=== PATIENT | female | born 1985 | race Caucasian/White ===

== ENCOUNTER 2020-01-26 07:00 | Emergency (ER) | payer OTHER, SELFPAY ==
[2020-01-26 07:08] VITALS: BP 130/82; BP 130/84; PULSE 88; PULSE 96; RESP 18; TEMP 36.6; O2SAT 100; O2SAT 98; BMI 31.3
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
[2020-01-26] MEDS: Acetaminophen 325 MG TABLET 650 MG PO (07:25)
[2020-01-26] MEDS: diazePAM 5 MG TABLET PO (07:26)
[2020-01-26 09:09] VITALS: BP 115/66; PULSE 58; RESP 16; O2SAT 98
--- NOTE | 2020-01-26 09:22 | PC.NURSE ---
PT GIVEN TOAST AND JUICE
== END 2020-01-26 09:30 | disposition home or self-care (01) ==
PROVIDERS: Emergency Provider Emergency Medicine; PCP Internal Medicine
DX: S13.4XXA Sprain of ligaments of cervical spine, initial encounter (principal); S46.912A Strain of unspecified muscle, fascia and tendon at shoulder and upper arm level, left arm, initial encounter; M54.2 Cervicalgia; M25.512 Pain in left shoulder; V43.52XA Car driver injured in collision with other type car in traffic accident, initial encounter; Y93.9 Activity, unspecified; Y92.410 Unspecified street and highway as the place of occurrence of the external cause; Y99.9 Unspecified external cause status; Z79.899 Other long term (current) drug therapy; F17.200 Nicotine dependence, unspecified, uncomplicated; Z71.6 Tobacco abuse counseling
CPT/HCPCS: 71046; 72125; 73030; 99284

== ENCOUNTER 2020-03-21 14:03 | Outpatient (REF) | payer OTHER, SELFPAY | END 2020-03-21 14:04 | disposition home or self-care (01) | LOC: HO.LAB 14:03 | PROVIDERS: PCP Internal Medicine; Visit Provider Internal Medicine | DX: Z20.822 Contact with and (suspected) exposure to COVID-19 (principal) | CPT/HCPCS: 36415; C9803; U0003 ==

== ENCOUNTER 2020-06-03 06:41 | Emergency (ER) | payer OTHER, SELFPAY ==
[2020-06-03 06:48] VITALS: BP 110/59; PULSE 77; RESP 18; TEMP 36.4; O2SAT 98; BMI 31.3
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
--- NOTE | 2020-06-03 07:13 | ECG_ITS ---
Test Reason : DIZZY Blood Pressure : / mmHG Vent. Rate : 065 BPM Atrial Rate : 065 BPM P-R Int : 164 ms QRS Dur : 092 ms QT Int : 448 ms P-R-T Axes : 033 005 017 degrees QTc Int : 465 ms Normal sinus rhythm Minimal voltage criteria for LVH, may be normal variant Borderline ECG When compared with ECG of 13-DEC-2017 10:52, No significant change was found Referred By: David Oliva Electronically Signed By:FATMATA GARCIA
--- NOTE | 2020-06-03 07:56 | PC.NURSE ---
Pt difficult IV stick, will have another RN attempt
[2020-06-03] MEDS: ondansetron HCL 4 MG/2 ML VIAL IVPUSH (08:12)
[2020-06-03] MEDS: 0.9 % Sodium Chloride 1,000 ML 999 ML IVCONT (08:12)
[2020-06-03 08:31] LABS: MANUAL DIFF FLAG NO
[2020-06-03 08:33] LABS: Basophils Percent Auto 0.6 % (0-2); Eosinophils Absolute Auto 0.6 X10*3/uL (0.0-0.4); Eosinophils Percent Auto 8.6 % (0-4); Hematocrit 39.8 % (37-47); Hemoglobin 13.1 g/dl (12.0-16.0); Imm Gran Abs Auto 0.01 X10*3/uL (0.00-0.03); Imm Gran Pct Auto 0.1 % (0.0-0.4); Lymphocytes Absolute Auto 1.5 X10*3/uL (1.2-4.9); Lymphocytes Percent Auto 21.8 % (20-40); Mean Corpuscular HGB Conc 32.9 g/dl (31.0-35.0); Mean Corpuscular Hemoglobin 29.4 pg (27.0-33.0); Mean Corpuscular Volume 89.2 fL (80-98); Mean Platelet Volume 8.9 fL (9.4-12.3); Monocytes Absolute Auto 0.5 X10*3/uL (0.1-1.2); Monocytes Percent Auto 7.1 % (2-11); Neutrophils Absolute Auto 4.4 X10*3/uL (2.0-8.3); Neutrophils Percent Auto 61.8 % (45-73); Platelet Count 288 X10*3/uL (160-400); Red Blood Count 4.46 X10*6/uL (4.20-5.50); Red Cell Distribution Width 13.2 % (11.0-16.0); White Blood Count 7.1 X10*3/uL (4.8-10.8)
[2020-06-03 08:59] LABS: HCG Quantitative < 2 mIU/mL
[2020-06-03 09:04] LABS: Alanine Aminotransferase 24 U/L (0-31); Albumin Level 3.9 g/dL (3.5-5.0); Alkaline Phosphatase 74 U/L (39-117); Anion Gap 14 (12-20); Aspartate Amino Transferase 22 U/L (5-31); Bilirubin Total 0.2 mg/dL (0.0-1.0); Blood Urea Nitrogen 10 mg/dL (9-16); Calcium 8.2 mg/dL (8.4-10.2); Carbon Dioxide 25 mmol/L (22-29); Chloride 103 mmol/L (96-108); Creatinine Clr Calc Pharmacy 130.9; Estimated Glomerular Filt Rate > 60; Glucose Random 95 mg/dL (60-115); Lipase 30 U/L (8-78); Potassium 4.5 mmol/L (3.3-5.1); Sodium 137 mmol/L (135-145); Total Protein 6.8 g/dL (6.5-8.0)
[2020-06-03 09:19] VITALS: BP 107/66; PULSE 60; RESP 16; O2SAT 97
== END 2020-06-03 09:45 | disposition home or self-care (01) ==
PROVIDERS: Emergency Provider Emergency Medicine; PCP Internal Medicine
DX: R11.2 Nausea with vomiting, unspecified (principal); Z21 Asymptomatic human immunodeficiency virus [HIV] infection status; F11.10 Opioid abuse, uncomplicated; F17.200 Nicotine dependence, unspecified, uncomplicated
CPT/HCPCS: 36415; 80053; 83690; 84702; 85025; 93005; 96361; 96374; 99284; J2405

== ENCOUNTER 2021-10-12 13:32 | Emergency (ER) | payer OTHER, SELFPAY ==
[2021-10-12 14:00] VITALS: BP 121/73; PULSE 73; RESP 18; TEMP 36.7; O2SAT 99; BMI 21.9
[2021-10-12 14:15] LABS: MANUAL DIFF FLAG NO
[2021-10-12 14:17] LABS: Basophils Percent Auto 0.2 % (0-2); Eosinophils Percent Auto 0.8 % (0-4); Hematocrit 46.1 % (37.0-47.0); Hemoglobin 15.9 g/dl (12.0-16.0); Imm Gran Abs Auto 0.01 X10*3/uL (0.00-0.03); Imm Gran Pct Auto 0.2 % (0.0-0.4); Lymphocytes Absolute Auto 0.7 X10*3/uL (1.2-4.9); Lymphocytes Percent Auto 13.8 % (20-40); Mean Corpuscular HGB Conc 34.5 g/dl (31.0-35.0); Mean Corpuscular Volume 84.1 fL (80.0-98.0); Mean Platelet Volume 9.8 fL (9.4-12.3); Monocytes Absolute Auto 0.3 X10*3/uL (0.1-1.2); Monocytes Percent Auto 6.1 % (2-11); Neutrophils Percent Auto 78.9 % (45-73); Platelet Count 256 X10*3/uL (160-400); Red Blood Count 5.48 X10*6/uL (4.20-5.50); Red Cell Distribution Width 12.8 % (11.0-16.0); White Blood Count 5.1 X10*3/uL (4.8-10.8)
[2021-10-12 14:44] LABS: COVID-19 Test Negative (Negative)
[2021-10-12 14:46] LABS: Alanine Aminotransferase 42 U/L (0-31); Albumin Level 4.8 g/dL (3.5-5.0); Alkaline Phosphatase 63 U/L (39-117); Anion Gap 18 (12-20); Aspartate Amino Transferase 29 U/L (5-31); Bilirubin Direct 0.4 mg/dL (0.0-0.5); Bilirubin Total 0.8 mg/dL (0.0-1.0); Blood Urea Nitrogen 7 mg/dL (9-16); Calcium 9.4 mg/dL (8.4-10.2); Carbon Dioxide 22 mmol/L (22-29); Chloride 100 mmol/L (96-108); Creatinine Clr Calc Pharmacy 103.1; Estimated Glomerular Filt Rate > 60; Glucose Random 80 mg/dL (60-115); Lipase 18 U/L (8-78); Potassium 3.8 mmol/L (3.3-5.1); Sodium 136 mmol/L (135-145); Total Protein 8.3 g/dL (6.5-8.0)
[2021-10-12] MEDS: 0.9 % Sodium Chloride 1,000 ML 999 ML IV (15:47)
[2021-10-12] MEDS: ondansetron HCL 4 MG/2 ML VIAL IVPUSH (15:48)
[2021-10-12 15:55] VITALS: BP 123/63; PULSE 69; RESP 20; TEMP 37.2; O2SAT 98
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
[2021-10-12 17:40] VITALS: BP 98/48; PULSE 74; RESP 18; TEMP 36.8; O2SAT 98
== END 2021-10-12 17:45 | disposition home or self-care (01) ==
PROVIDERS: Emergency Provider Emergency Medicine; PCP Internal Medicine
DX: R11.2 Nausea with vomiting, unspecified (principal); F17.210 Nicotine dependence, cigarettes, uncomplicated; Z20.822 Contact with and (suspected) exposure to COVID-19; Z71.6 Tobacco abuse counseling; Z79.899 Other long term (current) drug therapy
CPT/HCPCS: 36415; 80048; 80076; 83690; 84702; 85025; 87635; 96374; 99284; J2405

== ENCOUNTER 2023-05-26 09:07 | Emergency (ER) | payer MEDICAID, SELFPAY ==
--- NOTE | ~2023-05-26 | CT_ITS ---
EXAMINATION: CT HEAD WITHOUT CONTRAST CLINICAL INFORMATION: Fall head strike COMPARISON: None TECHNIQUE: Contiguous axial imaging was performed from the skull base to vertex without intravenous administration of contrast. This CT examination was performed using dose optimization techniques as appropriate, variously including the following: *Automated exposure control *Adjustment of mA and/or kV according to patient size (this includes techniques or standardized protocols for targeted exams where dose is matched to indication/reason for exam; i.e. extremities or head) *Use of iterative reconstruction technique DLP: 1052 mGy-cm FINDINGS: There is no evidence of acute intracranial hemorrhage or territorial infarction. No abnormal mass effect or midline shift is seen. [place] to white matter differentiation is well preserved. No extra-axial fluid collections are identified. The ventricles are normal in size. There is no abnormal attenuation within the brain parenchyma. The osseous structures and soft tissues are normal. Mucoperiosteal thickening of the right maxillary sinus. The mastoid air cells and visualized portions of the paranasal sinuses are well aerated. CT/CT cervical spine wo IV con IMPRESSION: No acute intracranial pathology. EXAMINATION: Noncontrast CT scan of the cervical spine. INDICATION: Neck pain trauma COMPARISON: CT cervical spine from 01/26/2020 TECHNIQUE: Helical, multidetector axial images were obtained from the occiput to the upper thorax. Coronal and sagittal reformats of the cervical spine were provided for interpretation. DLP: 1052 mGy-cm FINDINGS: No acute fractures or dislocations of the cervical spine are seen. Anatomic alignment and positioning of the vertebral bodies and posterior elements is noted. The atlantoaxial joint and craniovertebral articulations are normal without evidence of subluxation. There is no prevertebral soft tissue swelling. The thyroid gland and visualized portions of the lung apices and mediastinum are unremarkable. IMPRESSION: No acute visible fracture or dislocation.
--- NOTE | ~2023-05-26 | XR_ITS ---
EXAMINATION: XR ANKLE, RIGHT CLINICAL INFORMATION: Ankle pain and swelling COMPARISON: None available. TECHNIQUE: AP, lateral, and mortise views of the right ankle. FINDINGS: There is bilateral soft tissue swelling, lateral greater than medial. An ankle joint effusion is present. No fracture. Alignment is anatomic. No erosions. Joint spaces are maintained. XR/XR ankle RT min 3V IMPRESSION: Soft tissue swelling and ankle joint effusion. No acute fracture or malalignment.
[2023-05-26 09:14] VITALS: BP 106/49; BP 136/76; PULSE 108; PULSE 78; RESP 18; TEMP 36.9; O2SAT 96; O2SAT 98; BMI 26.0
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
[2023-05-26] MEDS: Ketorolac Tromethamine 30 MG/ML VIAL IM (09:52)
[2023-05-26 11:36] VITALS: PULSE 79; RESP 16; TEMP 36.9; O2SAT 96
[2023-05-26 11:52] VITALS: BP 114/55; PULSE 79; RESP 18; TEMP 36.9; O2SAT 96
--- NOTE | 2023-05-26 11:54 | PC.NURSE ---
offered shoes as pt did not have any and being d/c'd- declined to wait for shoes to be given by hospital- given nonskid socks to wear over her own socks as pt not wait for shoes
== END 2023-05-26 11:52 | disposition home or self-care (01) ==
PROVIDERS: Emergency Provider Emergency Medicine
DX: S06.0X0A Concussion without loss of consciousness, initial encounter (principal); M25.571 Pain in right ankle and joints of right foot; Z21 Asymptomatic human immunodeficiency virus [HIV] infection status; W18.30XA Fall on same level, unspecified, initial encounter; Y93.E9 Activity, other interior property and clothing maintenance; Y92.9 Unspecified place or not applicable; Y99.9 Unspecified external cause status
CPT/HCPCS: 70450; 72125; 73610; 96372; 99284; J1885

== ENCOUNTER 2023-10-24 18:57 | Emergency (ER) | payer MEDICAID, SELFPAY ==
[2023-10-24 19:20] VITALS: BP 101/50; BP 112/75; PULSE 68; PULSE 75; RESP 12; TEMP 36.6; O2SAT 100; BMI 23.5
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
[2023-10-24 19:27] VITALS: BP 97/59; PULSE 67; RESP 13; O2SAT 100
[2023-10-24 21:44] VITALS: BP 97/53; PULSE 61; RESP 12; TEMP 36.4; O2SAT 96
[2023-10-25 00:27] VITALS: BP 90/52; PULSE 58; RESP 16; TEMP 36.4; O2SAT 97
--- NOTE | 2023-10-25 00:30 | PC.NURSE ---
Pt arousable to verbal stimuli. Ready to be discharged with a sober ride. Pt does not have a sober ride available. Monitoring is ongoing.
--- NOTE | 2023-10-25 01:13 | PC.NURSE ---
Pts significant other, Mikael, called and states will be able to provide a sober ride for pt.
[2023-10-25 02:00] VITALS: BP 0/0; PULSE 0; RESP 0; TEMP -17.7; TEMP 0; O2SAT 0
== END 2023-10-25 02:00 | disposition home or self-care (01) ==
PROVIDERS: Emergency Provider Emergency Medicine
DX: T40.1X1A Poisoning by heroin, accidental (unintentional), initial encounter (principal); R40.0 Somnolence; Y92.59 Other trade areas as the place of occurrence of the external cause; F11.20 Opioid dependence, uncomplicated; B20 Human immunodeficiency virus [HIV] disease; F17.210 Nicotine dependence, cigarettes, uncomplicated
CPT/HCPCS: 99285

== ENCOUNTER 2025-01-31 02:12 | Inpatient (IN) | payer MEDICAID, SELFPAY ==
--- NOTE | ~2025-01-31 | CT_ITS ---
CLINICAL HISTORY: vomiting CT abdomen and pelvis with contrast Comparison: CT - CT ABDOMEN PELVIS W IV CON - 01/31/25 04:23 EST Findings: Bilateral right middle and left lower lobe nodular/tree-in-bud airspace opacities are present. No pleural effusion. There is mild central biliary dilation with prominence of the CBD measuring up to 9 mm without radiopaque filling defects or bile duct obstructions present. Mild pericholecystic fluid is present within a nondilated gallbladder. Spleen, pancreas, bilateral adrenal glands, and bilateral kidneys are within normal limits. No nephrolithiasis. No bowel obstruction, pneumoperitoneum, or pneumatosis. Appendix is normal. Bladder is distended without thickened bernal. Uterus is unremarkable. No suspicious osseous findings. No acute soft tissue findings. IMPRESSION: Mild intrahepatic ductal dilation with prominence of the CBD measuring up to 9 mm without obstructions or radiopaque stones identified. Pericholecystic fluid without findings of cholecystitis. This document has been electronically signed by: Nick Rodriguez MD on 01/31/2025 06:10:26
--- NOTE | ~2025-01-31 | XR_ITS ---
CLINICAL HISTORY: chest pain 1 view chest x-ray Comparison: None provided Findings: Patchy bilateral airspace opacities are present which could reflect developing pneumonia. No pleural effusion. Normal size heart. No acute fracture. IMPRESSION: Patchy bilateral airspace opacities are concerning for developing multifocal pneumonia. This document has been electronically signed by: Nick Rodriguez MD on 01/31/2025 05:53:21
[2025-01-31 02:17] VITALS: BP 113/73; PULSE 103; O2SAT 98
[2025-01-31 02:23] VITALS: BP 127/84; PULSE 93; RESP 18; TEMP 37; O2SAT 98; BMI 17.1
[2025-01-31 02:27] VITALS: BP 127/84; PULSE 93; RESP 18; TEMP 37; O2SAT 98
--- NOTE | 2025-01-31 02:28 | ECG_ITS ---
Test Reason : pain Blood Pressure : */* mmHG Vent. Rate : 78 BPM Atrial Rate : 78 BPM P-R Int : 152 ms QRS Dur : 100 ms QT Int : 412 ms P-R-T Axes : 65 58 75 degrees QTcB Int : 469 ms Normal sinus rhythm Nonspecific ST and T wave abnormality Prolonged QT Abnormal ECG When compared with ECG of 03-Jun-2020 07:31, ST no longer elevated in Lateral leads T wave inversion now evident in Anterior leads Referred By: Rudi Gutierres Electronically Signed By: Miguel Regan
[2025-01-31] MEDS: Lactated Ringers 1,000 ML 999 ML IV (03:04)
[2025-01-31 03:15] LABS: MANUAL DIFF FLAG NO
[2025-01-31 03:16] LABS: Hematocrit 43.7 % (37.0-47.0); Hemoglobin 15.2 g/dl (12.0-16.0); Imm Gran Abs Auto 0.05 X10*3/uL (0.00-0.03); Imm Gran Pct Auto 0.5 % (0.0-0.4); Lymphocytes Absolute Auto 0.5 X10*3/uL (1.2-4.9); Mean Corpuscular HGB Conc 34.8 g/dl (31.0-35.0); Mean Corpuscular Hemoglobin 28.8 pg (27.0-33.0); Mean Corpuscular Volume 82.9 fL (80.0-98.0); NRBC Abs Auto 0.000 X10*3/uL (0.0-0.012); NRBC Pct Auto 0.0 /100WBC (0.0-0.2); Platelet Count 485 X10*3/uL (160-400); Red Blood Count 5.27 X10*6/uL (4.20-5.50); White Blood Count 9.1 X10*3/uL (4.8-10.8)
--- OUTSIDE RECORDS SUMMARY | 2025-01-31 03:24 | XMS_ITS | Clinical Summary ---
Author Organization [facility] Address [address] [place] [address] Care Team Providers Care Founder And Ceo Name Role Phone Unavailable Primary Care Provider Unavailabl e Social History Tobacco Use Types Packs/Day Years Used Date Smoking Tobacco: Never Assessed Comments Unknown Sex and Gender Information Value Date Recorded Sex Assigned at Not on file Legal Sex Female 4:03 PM EST Gender Identity Not on file Sexual Orientation Not on file Plan of Treatment Health Maintenance Due Date Last Done Comments DTaP,Tdap,and Td Vaccines (1 - Tdap) 2004 Hepatitis B Vaccines (1 of 3 - 19+ 3-dose series) 2004 Cervical Cancer Screening: P ap Smear 2006 HPV Vaccines (1 - 3-dose SCD M series) 2012 Depression Screening 03/10/2024 COVID-19 Vaccine ( - 2024-2 6 season) 2024 Influenza Vaccine (#1) 2024 RSV Immunization Adult Patie nts (1 - 1-dose 75+ series) 2060 HIB Vaccines Aged Out No longer eligi ble based on patient's age to complete this topic Hepatitis A Vaccines Aged Out No long er eligible based on patient's age to complete this topic IPV Vaccines Aged Out No longer eligi ble based on patient's age to complete this topic MMR Vaccines Aged Out No longer eligi ble based on patient's age to complete this topic Meningococcal ACWY Vaccine Aged Out N o longer eligible based on patient's age to complete this topic Meningococcal B Vaccine Aged Out No l onger eligible based on patient's age to complete this topic Pneumococcal Vaccine: Pediat rics (0 to 5 Years) and At-Risk Patients (6 to 49 Years) Aged Out No longer eligible b ased on patient's age to complete this topic RSV Immunization Patients Un alka 20 months Aged Out No longer eligible b ased on patient's age to complete this topic Varicella Vaccines Aged Out No longer eligible based on patient's age to complete this topic
[2025-01-31 03:36] LABS: Troponin-I High Sensitivity < 2.7 ng/L (<3.5-17.0)
[2025-01-31 03:39] LABS: Alanine Aminotransferase 31 U/L (0-31); Albumin Level 4.7 g/dL (3.5-5.0); Alkaline Phosphatase 69 U/L (39-117); Anion Gap 17 (12-20); Aspartate Amino Transferase 30 U/L (5-31); Blood Urea Nitrogen 11 mg/dL (9-16); Calcium 9.7 mg/dL (8.4-10.2); Carbon Dioxide 29 mmol/L (22-29); Chloride 96 mmol/L (96-108); Creatinine Clr Calc Pharmacy 98.5; Estimated Glomerular Filt Rate > 60; Lipase 12 U/L (8-78); Magnesium 2.3 mg/dL (1.6-2.6); Potassium 2.6 mmol/L (3.3-5.1); Sodium 139 mmol/L (135-145); Total Protein 8.0 g/dL (6.5-8.0)
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
[2025-01-31] MEDS: KCl 20 mEq in 0.9 % Sodium ChL 20 MEQ/1,000 ML IV.SOLN 125 MEQ IVCONT (04:05)
[2025-01-31] MEDS: diazePAM 10 MG/2 ML CARTRIDGE 5 MG IVPUSH (04:05)
--- NOTE | 2025-01-31 04:20 | HO.NURTONUR ---
At 0300, RN had no tech on the floor in the ED; labs, EKG, etc will be delayed as pt is actively throwing up and RN has other pts to take care of as well in the moment. Pt was a hard stick but RN was able to obtain a #22 in . medicating per mar. pt is HIV +.
[2025-01-31] MEDS: iohexoL 350 MG/ML 100 ML INFUS..BTL 75 ML IV (04:39)
[2025-01-31 04:49] LABS: HIV Num 1 151.82 S/CO (0.00-0.99)
[2025-01-31 04:52] LABS: HIV Num 2 156.83 S/CO; HIV Num 3 156.28 S/CO
[2025-01-31 05:02] LABS: Resp Syncy Virus RNA Qual PCR NEGATIVE (Negative); SARS COV2 PCR INHOUSE NEGATIVE (Negative)
[2025-01-31] MEDS: Nystatin Oral Susp 500,000 UNIT/5 ML ORAL.SUSP 500000 UNIT PO (05:12)
[2025-01-31 05:33] VITALS: BP 121/78; PULSE 77; RESP 16; O2SAT 96
--- NOTE | 2025-01-31 05:36 | PC.NURSE ---
late lactic blood draw as pt had clotted during previous attempt. RN also lost tech at 0300. Lactic louisa by RN-sent to lab.
[2025-01-31] MEDS: Potassium Chloride ER 20 MEQ TAB.ER.PRT 60 MEQ PO (05:48)
--- NOTE | 2025-01-31 06:43 | HO.NURTONUR ---
pt only has one line- she is a hard stick. MD has ordered IV bactrim but it is not compatible with the K+ that is currently infusing. Pt will need another line. RN to let incoming RN know.
--- NOTE | 2025-01-31 07:46 | PM.DS ---
DS: Providers Provider Date of Service: 01/31/25 Date of admission: 01/31/25 06:17 Date of discharge: 01/31/25 Primary care physician: Paula Booker MD DS: Summary Hospital Course Hospital Course: Note from ED provider 39-year-old female with a past medical history significant for HIV presents for evaluation of nausea vomiting and chest pain. Patient reports that she has been vomiting for 1 month without being able to keep anything down. She reports that she has been offer HIV medications for about 1 year. She states that they are making her sick and she would not want to keep taking them She had previously been on them rail before a few years. She denies any previous abdominal surgeries pain She states that she is not actively using alcohol or drugs. Denies any fevers, chills. She endorses weakness Patient admitted for approximately 1 hour, workup has been started but not completed. We will send home with antibiotic for 7 days for possible pneumonia in light of history of HIV The patient has decided to leave against medical advice. She has normal mental status and adequate capacity to make medical decisions. The patient refuses hospital admission and wants to be discharged. The risks have been explained to the patient including worsening illness, chronic pain, permanent disability and even . The benefits of admission have also been explained including the availability of nurses, medical providers, close monitoring, IV medications, diagnostic imaging, treatments, etc.. The patient was able to understand and state the risks and benefits of hospital admission. The patient was given opportunities to ask questions prior to leaving. Time Attestation Discharge Coordination Time (in mins): 30 Quality: Safe Use of Opioids Does Pt have an Active Cancer Diagnosis on the Problem List?: No Quality: Stroke Does the patient have a stroke diagnosis?: No Physical Exam Exam: Exam: Declined Vital Signs: Vital Signs: Last Vital Signs Temp 98.6 F 01/31/25 02:27 Pulse 77 01/31/25 05:33 Resp 16 01/31/25 05:33 BP 121/78 01/31/25 05:33 Pulse Ox 96 01/31/25 05:33 O2 Del Method Room Air 01/31/25 05:33 BMI result Body Mass Index 17.1 DS: Data Data Completed and Pending Labs on day of discharge: Laboratory Results - last 24 hr 01/31/25 01/31/25 01/31/25 03:09 03:10 05:32 WBC 9.1 RBC 5.27 Hgb 15.2 Hct 43.7 MCV 82.9 MCH 28.8 MCHC 34.8 RDW 11.8 Plt Count 485 H D MPV 8.9 L Immature Gran % (Auto) 0.5 H Neut % (Auto) 86.1 H Lymph % (Auto) 5.4 L [place] % (Auto) 7.6 Eos % (Auto) 0.2 Baso % (Auto) 0.2 Lymph # (Auto) 0.5 L [place] # (Auto) 0.7 Eos # (Auto) 0.0 Baso # (Auto) 0.0 Abs Immat Gran (auto) 0.05 H Absolute Neuts (auto) 7.9 Absolute Nucleated RBC 0.000 Nucleated RBC % (auto) 0.0 Sodium 139 Potassium 2.6 L* Chloride 96 Carbon Dioxide 29 Anion Gap 17 BUN 11 Creatinine 0.60 Estim Creat Clear Calc 98.5 Estimated GFR > 60 Random Glucose 131 H Lactic Acid 0.7 Calcium 9.7 Magnesium 2.3 Total Bilirubin 0.5 AST 30 ALT 31 Alkaline Phosphatase 69 Troponin I High Sens < 2.7 Total Protein 8.0 Albumin 4.7 Lipase 12 Beta HCG, Quant < 2 HIV 1&2 Ab/P24 Ag 4thGn Reactive H Influenza Type A (PCR) NEGATIVE Influenza Type B (PCR) NEGATIVE RSV RNA Qual (PCR) NEGATIVE SARS-CoV-2 RNA (RT-PCR) NEGATIVE Discharge Plan Discharge Anticipated Discharge Date/Time: 01/31/25 07:44 Patient Disposition: Left Against Medical Advice Discharge Diagnosis: Nausea and vomiting Pneumonia Untreated HIV Referrals: Paula Kim MD [Primary Care Provider, Internal Medicine] Discharge Medications: New sulfamethoxazole-trimethoprim [Bactrim DS] 800-160 mg tablet 1 tab PO Q12H Qty: 14 0RF Continued hydroxyzine HCl 25 mg tablet 25 mg PO Q8H PRN ondansetron HCl [Zofran] 4 mg tablet 4 mg PO Q8H PRN (Reason: nausea and vomiting) Qty: 14 0RF ondansetron 4 mg tablet,disintegrating 4 mg PO Q6H PRN (Reason: nausea and vomiting) Qty: 20 0RF prenat.vits,marianna,vti-vtmb-hgzqy Tablet 1 tab PO DAILY Qty: 60 0RF ketorolac 10 mg tablet 10 mg PO TID PRN (Reason: pain) 5 Days Qty: 15 0RF prednisone 20 mg tablet 20 mg PO DAILY 5 Days Qty: 5 0RF acetaminophen [Tylenol] 325 mg capsule 325 mg PO Q4H PRN (Reason: pain) Qty: 30 0RF awwfdnfuv-tnhjxxnq-pwktevp ala 50-200-25 mg tablet 1 tab PO DAILY Qty: 14 0RF sertraline 100 mg tablet 300 mg PO Q OTHER DAY PRN fluticasone propionate [Flonase Allergy Relief] 50 mcg/actuation spray,suspension 1 spray intranasal DAILY 30 Days Qty: 16 3RF Rx Instructions: administer into each nostril hydrocortisone [Anti-Itch (HC)] 1 % cream 1 appl topical TID PRN (Reason: skin irritation) 30 Days Qty: 28.35 3RF Discharge Orders: Discharge Order (Routine); Ordered 01/31/25 Ordered By: Kyleigh Dewitt Diet: Advance to usual diet Activity on Discharge: As tolerated Print Language: [place] Care Plan Goals: The patient has decided to leave against medical advice. She has normal mental status and adequate capacity to make medical decisions. The patient refuses hospital admission and wants to be discharged. The risks have been explained to the patient including worsening illness, chronic pain, permanent disability and even . The benefits of admission have also been explained including the availability of nurses, medical providers, close monitoring, IV medications, diagnostic imaging, treatments, etc.. The patient was able to understand and state the risks and benefits of hospital admission. The patient was given opportunities to ask questions prior to leaving. Health Concerns: Nausea vomiting Pneumonia Untreated HIV Plan of Treatment: Follow up with primary care provider as needed Take all medications as prescribed Assessment: See discharge summary
[2025-01-31 07:56] VITALS: BP 112/74; PULSE 71; RESP 16; TEMP 36.7; O2SAT 98
--- NOTE | 2025-01-31 08:12 | PHA.MEDREC ---
Addendum entered by Cristel Winters RPh 01/31/25 08:17: MED REC REVIEWED BY [facility] Original Note: Pharmacy Consult ? Medication Reconciliation Pharmacy has completed the medication reconciliation. Spoke with pt and she confirmed she is not taking any medications at this time.
--- NOTE | 2025-01-31 09:23 | MHC.CM.PN ---
Patient left AMA prior to CM meeting with Patient.
[2025-02-03 06:03] LABS: HIV RNA PCR Qn Copies 3600 copies/mL (NOT DETECTED); HIV RNA PCR Qn Log Copies 3.56 (NOT DETECTED)
[2025-02-03 11:49] LABS: HIV 1 Antibody POSITIVE (NEGATIVE); HIV 2 Antibody NEGATIVE (NEGATIVE)
== END 2025-01-31 08:12 | disposition left against medical advice (07) | DRG 139 ==
LOC: HO.ED 04:18 → HO.EDOVER 06:21
PROVIDERS: Physician Assistant; Admitting Provider Hospitalist; Emergency Provider Emergency Medicine; PCP Internal Medicine; Visit Provider Hospitalist
DX: J18.9 Pneumonia, unspecified organism (principal); B37.0 Candidal stomatitis; Z21 Asymptomatic human immunodeficiency virus [HIV] infection status; R11.2 Nausea with vomiting, unspecified; F17.210 Nicotine dependence, cigarettes, uncomplicated; Z71.6 Tobacco abuse counseling; Z20.822 Contact with and (suspected) exposure to COVID-19; Z91.148 Patient's other noncompliance with medication regimen for other reason
CPT/HCPCS: 36415; 71045; 74177; 80053; 83605; 83690; 83735; 84484; 84702; 85025; 86359; 86360; 86701; 86702; 87040; 87389; 87536; 87637; 93005; 99285; J0737; J1630; J2405; J3360; J3480; J7120; Q9967

== ENCOUNTER → 2025-01-31 02:27 | Outpatient (BNV) | payer MEDICAID, SELFPAY | PROVIDERS: Emergency Provider Emergency Medicine; PCP Internal Medicine; Visit Provider Radiology Vascular & Interventional Radiology | DX: K83.8 Other specified diseases of biliary tract (principal); R91.8 Other nonspecific abnormal finding of lung field | CPT/HCPCS: 71045; 74177 ==

== ENCOUNTER → 2025-01-31 02:28 | Outpatient (BNV) | payer MEDICAID, SELFPAY | PROVIDERS: Admitting Provider Hospitalist; Emergency Provider Emergency Medicine; PCP Internal Medicine; Visit Provider Internal Medicine Cardiovascular Disease | DX: R94.31 Abnormal electrocardiogram [ECG] [EKG] (principal); R07.9 Chest pain, unspecified | CPT/HCPCS: 93010 ==

== ENCOUNTER 2025-02-21 06:14 | Inpatient (IN) | payer MEDICAID, SELFPAY ==
[2025-02-21] VITALS (7 sets, daily range): BP systolic 102–143; BP diastolic 57–96; PULSE 44–88; RESP 14–22; TEMP 36.4–37.3; O2SAT 96–100; BMI 17.4; BMI 17.3
--- NOTE | ~2025-02-21 | CT_ITS ---
EXAMINATION: CT ABDOMEN AND PELVIS WITH CONTRAST CLINICAL INFORMATION: Abdominal pain. COMPARISON: January 31, 2025 TECHNIQUE: Multidetector volumetric images were obtained from the superior aspect of the liver through the pubic symphysis following administration 85 mL of Omnipaque 350 intravenous contrast. Sagittal and coronal reformatted images were obtained on the technologist's workstation. Oral contrast: No This CT examination was performed using dose optimization techniques as appropriate, variously including the following: *Automated exposure control *Adjustment of mA and/or kV according to patient size (this includes techniques or standardized protocols for targeted exams where dose is matched to indication/reason for exam; i.e. extremities or head) *Use of iterative reconstruction technique DLP: 285 mGy-cm FINDINGS: LUNG BASES: No acute airspace disease or gross pulmonary nodules. LIVER, GALLBLADDER, AND BILIARY TREE: Liver measures 17 cm. No focal enhancing mass. Main portal veins, hepatic veins and intrahepatic portion of the IVC are grossly patent. Gallbladder is not distended. Gallbladder wall measures 2 mm maximal thickness. There is intra and extrahepatic biliary ductal dilatation, the common bile duct measures 12 mm in maximal diameter with an abrupt cut off near the junction with the second portion of the duodenum. PANCREAS: No solid or cystic lesion. No main pancreatic ductal dilatation. No peripancreatic fluid collections. SPLEEN: 9 cm. No solid or cystic mass. ADRENAL GLANDS: No nodular lesions. KIDNEYS AND URETERS: No gross renal mass. No hydronephrosis. No gross nephrolithiasis. Subcentimeter cyst, right kidney. Normal enhancement of the renal parenchyma. No dilatation of the ureters. BLADDER: Fluid-filled. GASTROINTESTINAL TRACT: Abundant stool, large intestine. No intestinal obstruction pattern. No pneumatosis intestinalis. Appendix appears normal. Questionable intestinal wall thickening, rectosigmoid colon. There is ascites, small volume. No pneumoperitoneum. ABDOMINAL WALL: No gross umbilical hernia There is edema pattern in the fat planes of the abdomen and pelvis wall and likely hips. No subcutaneous emphysema.. LYMPH NODES: No mesenteric or retroperitoneal lymphadenopathy. VASCULAR: No aneurysm or dissection, abdominal aorta. No gross calcified plaques. PELVIC VISCERA: No gross masses. OSSEOUS STRUCTURES: Spondylosis, T10-11, T11-12 and L5-S1. Sclerosis and the sacroiliac joints. No acute fracture or gross listhesis in the axial skeleton. No lytic or blastic lesions. 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 Underlying lesion cannot be entirely excluded. Ascites and anasarca, mild.. Autoimmune disorders among other etiologies should be considered. Fleischner guidelines were followed. Electronically signed by: Jose Pinto MD 02/21/2025 09:14 AM [facility]
--- NOTE | ~2025-02-21 | US_ITS ---
EXAMINATION: US ABDOMEN LIMITED CLINICAL INFORMATION: Cholecystitis. COMPARISON: CT abdomen 02/21/2025 TECHNIQUE: Real-time imaging of the right upper quadrant abdominal viscera. FINDINGS: GALLBLADDER: Gallstones present. Echogenic bile. Gallbladder wall thickening measuring 1.7 cm. There is pericholecystic fluid. Technologist reports patient is medicated.. Evaluation of sonographic Rawls's sign could not be reliably done. COMMON BILE DUCT: Normal in caliber measuring 1.4 cm in diameter. US/US abdomen limited IMPRESSION: Gallstones and echogenic bile present.. Gallbladder wall is thickened measuring 1.7 cm, with pericholecystic fluid. Sonographic Rawls's sign could not be evaluated, as the patient is medicated. Findings suspicious for cholecystitis. Clinically correlate. Further evaluation with HIDA scan as clinically indicated. Electronically signed by: Ash Bob MD 02/21/2025 09:45 AM EST
--- NOTE | ~2025-02-21 | FL_ITS ---
EXAMINATION: FL GUIDANCE ONLY HISTORY: ERCP COMPARISON: Correlation is made with an MRCP dated 02/21/2025. TECHNIQUE: Fluoroscopy time: 4 minutes, 48 seconds. Cumulative Dose: 33.34 mGy. DAP: 1234.58 uGym2 Images: 13. FINDINGS: Multiple fluoroscopic spot films from an ERCP are submitted. There is mild intra and extrahepatic biliary ductal dilatation. Balloon sweeps of the common bile duct were performed. FL/FL guidance in OR IMPRESSION: Fluoroscopy during procedure. Please see procedure report for additional information. Electronically signed by: Cliff Galloway MD 02/23/2025 07:21 AM [facility] [place]
--- NOTE | ~2025-02-21 | XR_ITS ---
EXAMINATION: XR CHEST CLINICAL INFORMATION: pain COMPARISON: 01/31/2025. TECHNIQUE: AP portable view of the chest was obtained. FINDINGS: There is mild leftward rotation. The cardiac, hilar, and mediastinal contours are normal. The lungs are clear bilaterally. No pneumothorax or effusion. No focal osseous or soft tissue abnormality. XR/XR chest 1V IMPRESSION: No active pulmonary disease. Electronically signed by: Ramirez Esqueda MD 02/21/2025 08:20 AM [facility]
--- NOTE | ~2025-02-21 | MR_ITS ---
EXAMINATION: MRCP CLINICAL INFORMATION: Right upper quadrant abdominal pain. TECHNIQUE: Coronal T2 fat-sat HASTE sequences.. COMPARISON: None FINDINGS: Limited examination. Patient refused to continue with the examination. Multiple polygonal shape, less than 13 mm hypointense T2 is signal lesions in the gallbladder lumen. No pericholecystic fluid collection. Trace of pericholecystic fluid and perihepatic fluid. Common bile duct measures 15 mm in maximum diameter with an abrupt cut off near the junction with the second portion of the duodenum. There is mild prominence of the intrahepatic biliary ductal system. The main pancreatic duct measures 3.3 mm in maximum diameter. Liver measures 17 cm. Spleen measures 10 cm. No hydronephrosis in either kidney. MR/MR MRCP IMPRESSION: Inadequate examination. 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 No lithiasis. Hepatomegaly, mild. Ascites, small volume. Electronically signed by: Jose Pinto MD 02/21/2025 01:01 PM EST
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
[2025-02-21] MEDS: Lactated Ringers 1,000 ML 999 ML IV (06:36)
[2025-02-21 06:40] LABS: MANUAL DIFF FLAG NO
[2025-02-21 06:41] LABS: Hematocrit 39.2 % (37.0-47.0); Hemoglobin 13.0 g/dl (12.0-16.0); Imm Gran Abs Auto 0.01 X10*3/uL (0.00-0.03); Imm Gran Pct Auto 0.3 % (0.0-0.4); Lymphocytes Absolute Auto 0.6 X10*3/uL (1.2-4.9); Mean Corpuscular HGB Conc 33.2 g/dl (31.0-35.0); Mean Corpuscular Hemoglobin 28.4 pg (27.0-33.0); Mean Corpuscular Volume 85.8 fL (80.0-98.0); NRBC Abs Auto 0.000 X10*3/uL (0.0-0.012); NRBC Pct Auto 0.0 /100WBC (0.0-0.2); Platelet Count 294 X10*3/uL (160-400); Red Blood Count 4.57 X10*6/uL (4.20-5.50); White Blood Count 3.7 X10*3/uL (4.8-10.8)
--- NOTE | 2025-02-21 06:44 | ECG_ITS ---
Test Reason : CHEST PAIN Blood Pressure : */* mmHG Vent. Rate : 51 BPM Atrial Rate : 51 BPM P-R Int : 146 ms QRS Dur : 90 ms QT Int : 508 ms P-R-T Axes : 65 50 67 degrees QTcB Int : 468 ms Sinus bradycardia Otherwise normal ECG When compared with ECG of 31-Jan-2025 04:53, Vent. rate has decreased by 27 bpm Non-specific change in ST segment in Anterior leads T wave inversion less evident in Anterior leads Referred By: Izabella Lyons Electronically Signed By: Miguel Regan
--- OUTSIDE RECORDS SUMMARY | 2025-02-21 07:15 | XMS_ITS | Clinical Summary ---
Author Organization [facility] Address [address] [place] [address] Care Team Providers [facility] Worker Name Role Phone Unavailable Primary Care Provider [...]
--- NOTE | 2025-02-21 07:48 | PC.NURSE ---
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 Per Taylor IBARRA no family members picked up when they called for someone to take the kids. HPD involved filed on patient.
--- NOTE | 2025-02-21 07:56 | PC.NURSE ---
grandparents arrived will be taking both children. Grandfather left to get a car seat for the youngest child. Grandmother stayed to tend to children.
[2025-02-21 08:09] LABS: Alanine Aminotransferase 531 U/L (0-31); Albumin Level 4.0 g/dL (3.5-5.0); Alkaline Phosphatase 197 U/L (39-117); Anion Gap 13 (12-20); Aspartate Amino Transferase 558 U/L (5-31); Blood Urea Nitrogen 14 mg/dL (9-16); Calcium 9.1 mg/dL (8.4-10.2); Carbon Dioxide 21 mmol/L (22-29); Chloride 106 mmol/L (96-108); Creatinine Clr Calc Pharmacy 128.1; Estimated Glomerular Filt Rate > 60; Magnesium 1.8 mg/dL (1.6-2.6); Potassium 3.8 mmol/L (3.3-5.1); Sodium 136 mmol/L (135-145); Total Protein 6.8 g/dL (6.5-8.0)
[2025-02-21 08:17] LABS: Lipase 1155 U/L (8-78)
[2025-02-21] MEDS: iohexoL 350 MG/ML 100 ML INFUS..BTL IV (08:32)
[2025-02-21] MEDS: metroNIDAZOLE/NS 500 MG/100 ML PIGGYBACK 100 MG IV ×2 (08:49→16:59)
--- NOTE | 2025-02-21 10:30 | MHC.CM.ED ---
Received consult for assessment of d/c needs: pt referred for children's entertainer assistance: informed ED provider that this is not a CM role.
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
[2025-02-21] MEDS: Lactated Ringers 1,000 ML 100 ML IVCONT (12:05)
--- NOTE | 2025-02-21 12:44 | PHA.MEDREC ---
Addendum entered by Cristel Winters RPh 02/21/25 14:29: MED REC REVIEWED BY [facility] Spoke to Milan Garcia..he wants Biktarvy to be added to patient's home med list (even tough she hasn't picked up med yet). Original Note: Pharmacy Consult ? Medication Reconciliation Pharmacy has completed the medication reconciliation. Spoke with pt and she stated she is taking Tivicay and Descovy for HIV but was not able to verify dosages or directions on how she is taking those and she doesn't remember where she was filling those at this time; called pt pharmacy ([facility]) on file and they stated they have no claims for Tivicay or Descovy at there facility but they did just recently fill Biktarvy 01/31 but pt never picked that medication up.
[2025-02-21 13:30] LABS: Appearance Urine Clear; Glucose Urine UA Negative (Negative); PH 5.5 (5.0-9.0); Specific Gravity - Urine >= 1.030 (1.005-1.025); UMIC TRIGGER UA YES
[2025-02-21 13:39] LABS: Cannabinoid Screen Urine Not Detected (Not Detect)
[2025-02-21] MEDS: Ketamine HCl/NS 50 MG/5 ML SYRINGE 20 MG IVPUSH (14:24)
[2025-02-21] MEDS: methADONE HCl 20 MG/2 ML ORAL.CONC 30 MG PO (14:28)
--- NOTE | 2025-02-21 15:15 | MHC.RECOVRN ---
Met with pt in ED10 after receiving an addiction consult for evalution of OUD. Upon approach pt is restless and yelling in pain. Initially stated she did not wish to discuss anything concerning substance use as in her own words I have an obstruction I need surgery and I'm in a lot of pain . Pt reported daily intranasal fentanyl use and that she typically is on methadone - states she was last dosed about a month ago with 130mg methadone @ [facility] (dose not verified yet). Pt reported currently feeling opioid withdrawal symptoms such as restlessness & body aches and stated she last used 2 days ago. Provider made aware. Pt reported that she wishes to continue at [facility] for methadone dosing following discharge. No further information was obtained as pt was very uncomfortable and unable to further participate in eval. Provider made aware and methadone was ordered per pt request. ACS team to follow up with pt at a later time.
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
[2025-02-21] MEDS: Bictegrav/Emtricit/Tenofov Ala TABLET 1 TAB PO (16:17)
[2025-02-21] MEDS: 0.9 % Sodium Chloride Flush 3 ML SYRINGE IVFLUSH ×2 (16:18→22:13)
[2025-02-21 16:35] LABS: INTERNATIONAL NORM RATIO 1.2 (0.9-1.1); Prothrombin Time 15.1 SEC (11.2-13.5)
[2025-02-21] MEDS: Sulfamethox/Trimeth 800/160 TABLET 1 TAB PO (16:58)
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
--- NOTE | 2025-02-21 17:53 | PM.EVENT ---
Event Note Date of Service: 02/21/25 Event Note: GI Consult-Full note dictated-History from patient and EMR. Imp: Based on her clinical history, abnormal labs, and her imaging studies, I suspect this represents abdominal pain and a component of biliary obstruction due to choledocholithiasis. She doesn't show any signs of cholangitis at this time. She does have some ongoing abdominal pain. Rec: IV antibiotics, analgesics, and supportive care. F/U labs in AM. NPO. Will plan for an ERCP probably tomorrow with me or Dr. Inman. Full consent has been obtained for this, including risks of bleeding, perforation, cholangitis, and pancreatitis. D/W patient in detail and she is comfortable with this plan. Thanks Time Spent With Patient Time: Total time managing care of this patient today ____ minutes.
[2025-02-21] MEDS: methADONE HCl 20 MG/2 ML ORAL.CONC PO (18:10)
[2025-02-21] MEDS: Dextrose 5 % and Lactated Ring 1,000 ML 100 ML IVCONT (22:13)
[2025-02-22] VITALS (11 sets, daily range): BP systolic 117–142; BP diastolic 74–93; PULSE 65–97; RESP 14–18; TEMP 36.2–37.3; O2SAT 96–99; BMI 17.3
[2025-02-22] MEDS: metroNIDAZOLE/NS 500 MG/100 ML PIGGYBACK 100 MG IV ×3 (00:15→15:59)
--- NOTE | 2025-02-22 03:16 | CONS_ITS ---
DATE OF SERVICE: 02/21/2025 REASON FOR CONSULTATION: Abdominal pain, elevated LFTs, gallstones, and abnormal imaging of her biliary tract. HISTORY OF PRESENT ILLNESS: This has been obtained from the patient and the medical record. The patient is a 39-year-old female with an unfortunate history of chronic substance abuse and HIV infection, who presents with 1 or 2 days of upper abdominal pain. She describes a previous history of abdominal pain, but this would always resolve spontaneously. She has not had pain in quite some time, but developed pain yesterday, which worsened and prompted her ER visit. Her workup has revealed elevated LFTs, abnormal imaging of her abdomen with a dilated biliary system and gallstones in the gallbladder. She has been afebrile and otherwise hemodynamically stable. She has had ongoing pain requiring analgesics. She has not noticed any definitive jaundice, but has noticed her urine to be somewhat darker than usual. She describes the pain is localized to the mid abdomen. There has been some nausea, but she denies any vomiting. She denies any diarrhea, hematochezia, or melena. She does not use any alcohol, but does use drugs nasally including cocaine and heroin. Her toxicology screen on admission today was positive for opiates, fentanyl, and cocaine. Since admission to the medical floor, she has had continued pain, but again has remained afebrile and hemodynamically stable. MEDICATIONS: Medications at home, Biktarvy. PAST MEDICAL HISTORY: HIV infection for the past 6 years. Substance abuse. She describes surgery for tonsils and thumb surgery. She denies any other medical problems such as diabetes, heart disease, asthma, or stroke. SOCIAL HISTORY: She is single. As above, she does not use any alcohol. FAMILY HISTORY: Noncontributory. She denies any known family history of liver disease or pancreatic disease. REVIEW OF SYSTEMS: CONSTITUTIONAL: She has been feeling poorly in regard to her overall health and her abdominal pain. Appetite has been poor. CARDIAC: No chest pain. PULMONARY: No coughing or hemoptysis. GI: As above. GENITOURINARY: No dysuria or hematuria. PHYSICAL EXAMINATION: GENERAL: The patient is a chronically ill appearing female, in no distress. SKIN: Warm and dry. HEENT: Anicteric sclerae. CHEST: Clear. CARDIAC: Normal S1, S2. ABDOMEN: Soft. Bowel sounds are somewhat diminished. She has a diffuse tenderness, particularly in the upper abdomen. There is no palpable mass. LABORATORY DATA: Toxicology screen as above. White blood cell count 3.7, hemoglobin 13.0, platelets 294,000. PT 15.11 with INR 1.2. Normal chemistries. BUN 14, creatinine 0.5, total bilirubin 1.1, AST 558, ALT 531, alkaline phosphatase 197, and lipase of 1155. Prior to today, her most recent liver profile on January 31 was completely normal. She also had normal lipase on January 31. Serum test is negative. She has had an ultrasound of the abdomen, CT of the abdomen, an MRI of the abdomen. These all show a component of biliary obstruction, which seems more pronounced than on a CT scan on January 31. She is also noted to have gallstones in the gallbladder, but no definitive common duct stones. However, the biliary tract is abnormal with a component of obstruction noted down to the level of the distal bile duct. The MRI was somewhat suboptimal in regard to seeing stones due to her level of discomfort and agitation with inability to complete the procedure. IMPRESSION: Given the patient's clinical history of what she describes as new onset of pain, newly elevated LFTs, gallstones, and a more dilated extrahepatic bile duct than usual, I suspect we are dealing with biliary obstruction from choledocholithiasis. This would certainly account for her pain as well. At this point, I would recommend eventual ERCP with myself or Dr. Inman. Full consent has been obtained from her for this, including risks of bleeding, perforation, cholangitis, and pancreatitis. In the meantime, I would continue supportive care with IV antibiotics, IV fluids, and analgesics. She will have followup laboratories in the morning. She has been seen by the surgical service as well, and I suspect will ultimately need a cholecystectomy once her biliary obstruction has been dealt with by ERCP. This has been discussed in detail with the patient and she is comfortable with the plan. Thank you for the consultation. MD JORGE Lofton/LEATHA / [phone] AKOSUA
[2025-02-22 06:04] LABS: MANUAL DIFF FLAG NO
[2025-02-22 06:20] LABS: Hematocrit 39.0 % (37.0-47.0); Hemoglobin 13.4 g/dl (12.0-16.0); Imm Gran Abs Auto 0.03 X10*3/uL (0.00-0.03); Imm Gran Pct Auto 0.4 % (0.0-0.4); Lymphocytes Absolute Auto 0.4 X10*3/uL (1.2-4.9); Mean Corpuscular HGB Conc 34.4 g/dl (31.0-35.0); Mean Corpuscular Hemoglobin 29.2 pg (27.0-33.0); Mean Corpuscular Volume 85.0 fL (80.0-98.0); NRBC Abs Auto 0.000 X10*3/uL (0.0-0.012); NRBC Pct Auto 0.0 /100WBC (0.0-0.2); Platelet Count 324 X10*3/uL (160-400); Red Blood Count 4.59 X10*6/uL (4.20-5.50); White Blood Count 6.7 X10*3/uL (4.8-10.8)
[2025-02-22 06:34] LABS: INTERNATIONAL NORM RATIO 1.3 (0.9-1.1); Prothrombin Time 15.6 SEC (11.2-13.5)
[2025-02-22 06:38] LABS: Alanine Aminotransferase 321 U/L (0-31); Albumin Level 3.8 g/dL (3.5-5.0); Alkaline Phosphatase 174 U/L (39-117); Anion Gap 10 (12-20); Aspartate Amino Transferase 163 U/L (5-31); Blood Urea Nitrogen 12 mg/dL (9-16); Calcium 8.9 mg/dL (8.4-10.2); Carbon Dioxide 25 mmol/L (22-29); Chloride 103 mmol/L (96-108); Creatinine Clr Calc Pharmacy 124.4; Estimated Glomerular Filt Rate > 60; Potassium 3.4 mmol/L (3.3-5.1); Sodium 135 mmol/L (135-145); Total Protein 6.3 g/dL (6.5-8.0)
[2025-02-22 06:53] LABS: Lipase 356 U/L (8-78)
[2025-02-22] MEDS: methADONE HCl 20 MG/2 ML ORAL.CONC 60 MG PO (07:06)
[2025-02-22] MEDS: Dextrose 5 % and Lactated Ring 1,000 ML 100 ML IVCONT ×2 (07:07→16:56)
[2025-02-22] MEDS: Bictegrav/Emtricit/Tenofov Ala TABLET 1 TAB PO (07:34)
--- NOTE | 2025-02-22 07:34 | PM.PNGS ---
Subjective Subjective Date of Service: 02/22/25 <Lana Gracia PA-C - Last Filed: 02/22/25 07:39> 02/22/25 <Sherif Quiñonez MD - Last Filed: 02/22/25 11:10> Interval history: Continues to complain of severe epigastric pain, somewhat relieved by pain meds. <Lana Gracia PA-C - Last Filed: 02/22/25 07:39> Physical Exam Vital Signs: Vital Signs: Last Vital Signs Temp 97.5 F 02/22/25 03:35 Pulse 65 02/22/25 03:35 Resp 18 02/22/25 03:35 BP 134/78 02/22/25 03:35 Pulse Ox 97 02/22/25 03:35 O2 Del Method Room Air 02/22/25 03:35 BMI result Body Mass Index 17.3 <Lana Gracia PA-C - Last Filed: 02/22/25 07:39> Const: General: anxious <Lana Gracia PA-C - Last Filed: 02/22/25 07:39> Nutritional Appearance: cachectic <Lana Gracia PA-C - Last Filed: 02/22/25 07:39> Orientation/consciousness: patient oriented x3 <Lana Gracia PA-C - Last Filed: 02/22/25 07:39> Resp: Effort & Inspection: normal respiratory effort <Lana Gracia PA-C - Last Filed: 02/22/25 07:39> GI: Other: soft mild diffuse tenderness, more increased in epigastric region <Lana Gracia PA-C - Last Filed: 02/22/25 07:39> Skin: Other: warm and dry <Lana Gracia PA-C - Last Filed: 02/22/25 07:39> Neuro: General: patient oriented x3 and moves all extremities <GEMA Wood Last Filed: 02/22/25 07:39> Objective Data Active Medications Acetaminophen (Acetaminophen 325 Mg Tablet) 650 mg PO Q6H PRN PRN Reason: Pain, Mild 1-3,fever,headache Bictegravir/Emtricitabine/Tenofovir (Bictegrav/Emtricit/Tenofov Ala Tablet) 1 tab PO DAILY ON LICENSE OF [facility] Last Admin: 02/21/25 16:17 Dose: 1 tab Documented By: THEODORE Calcium Carbonate (Calcium Carbonate 750 Mg Tab.Chew) 750 mg PO Q4H PRN PRN Reason: Heartburn Hydromorphone HCl (Hydromorphone Hcl 1 Mg/Ml Syringe) 1.5 mg IVPUSH Q3H PRN; Protocol PRN Reason: Pain, Severe (Pain Scale 7-10) Last Admin: 02/22/25 05:37 Dose: 1.5 mg Documented By: JESSY Metronidazole (Flagyl) 500 mg in 100 mls @ 100 mls/hr IV Q8H ON LICENSE OF [facility] Last Infusion: 02/22/25 01:23 Dose: Infused Documented By: JESSY Ceftriaxone Sodium 1 gm/ (Sodium Chloride) 50 mls @ 100 mls/hr IV Q24H ON LICENSE OF [facility] Dextrose/Lactated Ringer's (D5lr) 1,000 mls @ 100 mls/hr IVCONT .Q10H ON LICENSE OF [facility] Last Admin: 02/22/25 07:07 Dose: 100 mls/hr Documented By: MILENA Indomethacin (Indomethacin 50 Mg Supp.Rect) 100 mg [place] PREOP ONE Stop: 02/22/25 09:01 Ketorolac Tromethamine (Ketorolac Tromethamine 30 Mg/Ml Vial) 30 mg IVPUSH Q6H PRN PRN Reason: Pain, Moderate(Pain Scale 4-6) Last Admin: 02/22/25 01:02 Dose: 30 mg Documented By: JESSY Magnesium Hydroxide (Milk Of Magnesia 30 Ml Oral.Susp) 30 ml PO DAILY PRN PRN Reason: Constipation Melatonin (Melatonin 3 Mg Tablet) 6 mg PO BEDTIME PRN PRN Reason: Insomnia Methadone HCl (Methadone Hcl 20 Mg/2 Ml Oral.Conc) 60 mg PO DAILY@0800 ON LICENSE OF [facility] Last Admin: 02/22/25 07:06 Dose: 60 mg Documented By: MILENA Co-signed By: CHELSEA Naloxone HCl (Naloxone Hcl 0.4 Mg/Ml Vial) 0.1 mg IVPUSH Q2M PRN PRN Reason: Respiratory Rate < 10 Ondansetron HCl (Ondansetron Hcl 4 Mg/2 Ml Vial) 4 mg IVPUSH Q8H PRN PRN Reason: Nausea and Vomiting Sodium Chloride (0.9 % Sodium Chloride Flush 3 Ml Syringe) 3 ml IVFLUSH QSHIFT ON LICENSE OF [facility] Last Admin: 02/22/25 07:08 Dose: Not Given Documented By: MILENA Non-Admin Reason: IV Running Trimethoprim/Sulfamethoxazole (Sulfamethox/Trimeth 800/160 Tablet) 1 tab PO Q24H ON LICENSE OF [facility] Last Admin: 02/21/25 16:58 Dose: 1 tab Documented By: JESSE <Lana Gracia PA-C - Last Filed: 02/22/25 07:39> Labs CBC & Chem 7: 02/22/25 05:32 02/22/25 05:32 <Lana Gracia PA-C - Last Filed: 02/22/25 07:39> Labs: Laboratory Results - last 24 hr 02/21/25 02/21/25 02/21/25 07:32 08:45 13:22 MCV MCH MCHC RDW Plt Count MPV Immature Gran % (Auto) Neut % (Auto) Lymph % (Auto) [place] % (Auto) Eos % (Auto) Baso % (Auto) Lymph # (Auto) [place] # (Auto) Eos # (Auto) Baso # (Auto) Abs Immat Gran (auto) Absolute Neuts (auto) Absolute Nucleated RBC Nucleated RBC % (auto) PT INR Anion Gap 13 Estim Creat Clear Calc 128.1 Estimated GFR > 60 Random Glucose 106 Fasting Glucose Lactic Acid 0.5 Calcium 9.1 D Magnesium 1.8 Total Bilirubin 1.1 H Direct Bilirubin AST 558 H ALT 531 H Alkaline Phosphatase 197 H Total Protein 6.8 Albumin 4.0 Lipase 1155 H Beta HCG, Quant < 2 Urine Color Dark Yellow Urine Appearance Clear Urine pH 5.5 Ur Specific [place] >= 1.030 H Urine Protein 30 (1+) H Urine Glucose (UA) Negative Urine Ketones 15 Urine Blood Negative Urine Nitrite Negative Ur Leukocyte Esterase Trace H Urine RBC 0-2 Urine WBC 0-5 Ur Squamous Epith Cells 3-5 Urine Bacteria Trace Hyaline Casts 0-2 Urine Opiates Screen POSITIVE H Ur Buprenorphine Scrn Not Detected Ur Oxycodone Screen Not Detected Urine Methadone Screen Not Detected Urine Fentanyl Screen POSITIVE H Ur Barbiturates Screen Not Detected Ur Phencyclidine Scrn Not Detected Ur Amphetamines Screen Not Detected U Benzodiazepines Scrn Not Detected Urine Cocaine Screen POSITIVE H U Marijuana (THC) Screen Not Detected 02/21/25 02/22/25 16:23 05:32 MCV 85.0 MCH 29.2 MCHC 34.4 RDW 14.4 Plt Count 324 MPV 9.7 Immature Gran % (Auto) 0.4 Neut % (Auto) 85.7 H Lymph % (Auto) 6.6 L [place] % (Auto) 6.9 Eos % (Auto) 0.1 Baso % (Auto) 0.3 Lymph # (Auto) 0.4 L [place] # (Auto) 0.5 Eos # (Auto) 0.0 Baso # (Auto) 0.0 Abs Immat Gran (auto) 0.03 Absolute Neuts (auto) 5.7 Absolute Nucleated RBC 0.000 Nucleated RBC % (auto) 0.0 PT 15.1 H 15.6 H INR 1.2 H 1.3 H Anion Gap 10 L Estim Creat Clear Calc 124.4 Estimated GFR > 60 Random Glucose 128 H Fasting Glucose 130 H Lactic Acid Calcium 8.9 Magnesium Total Bilirubin 0.9 Direct Bilirubin 0.4 AST 163 H ALT 321 H Alkaline Phosphatase 174 H Total Protein 6.3 L Albumin 3.8 Lipase 356 H Beta HCG, Quant Urine Color Urine Appearance Urine pH Ur Specific [place] Urine Protein Urine Glucose (UA) Urine Ketones Urine Blood Urine Nitrite Ur Leukocyte Esterase Urine RBC Urine WBC Ur Squamous Epith Cells Urine Bacteria Hyaline Casts Urine Opiates Screen Ur Buprenorphine Scrn Ur Oxycodone Screen Urine Methadone Screen Urine Fentanyl Screen Ur Barbiturates Screen Ur Phencyclidine Scrn Ur Amphetamines Screen U Benzodiazepines Scrn Urine Cocaine Screen U Marijuana (THC) Screen <Lana Gracia PA-C - Last Filed: 02/22/25 07:39> Procedures Date of Service Date of Service: 02/22/25 <Lana Gracia PA-C - Last Filed: 02/22/25 07:39> 02/22/25 <Sherif Quiñonez MD - Last Filed: 02/22/25 11:10> Progress Note: A&P Assessment and plan (1) AIDS: Status: Acute <Lana Gracia PA-C - Last Filed: 02/22/25 07:39> (2) Transaminitis: Status: Acute <Lana Gracia PA-C - Last Filed: 02/22/25 07:39> Assessment and Plan: Feels the same as yesterday Complains of abdominal pain Abdomen otherwise soft and benign LFTs improving slightly For ERCP today As per ID, 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 Seen by ID who questions AIDS cholangiopathy. Possible ERCP today with GI. No acute current surgical intervention currently necessary. Will follow. <Lana Gracia PA-C - Last Filed: 02/22/25 07:39> Time Spent With Patient Time: Total time managing care of this patient today ____ minutes. <Lana Gracia PA-C - Last Filed: 02/22/25 07:39> Quality Stroke Does the patient have a stroke diagnosis?: No <Lana Gracia PA-C - Last Filed: 02/22/25 07:39> VTE Prior VTE?: No <Lana Gracia PA-C - Last Filed: 02/22/25 07:39> VTE Risk Level:: Medical - moderate - high <Lana Gracia PA-C - Last Filed: 02/22/25 07:39> VTE Device Contraindication: N/A - Device Ordered <Lana Gracia PA-C - Last Filed: 02/22/25 07:39> VTE Drug Contraindication: Treatment Not Indicated <Lana Gracia PA-C - Last Filed: 02/22/25 07:39>
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
--- NOTE | 2025-02-22 08:40 | HO.PM.IMPN ---
Subjective Subjective Date of Service: 02/22/25 Interval History: Follow up for pt with choledocholithiasis concerns for obstructive stone Patient's pain was initially very difficult to manage, has been better controlled since last night LFTs and lipase trending down, possibly passed a stone Pt continues to complain of epigastric abdominal pain, though feels some relief from yesterday No nausea or vomiting Seen by GI who plans on ERCP later today Review of Systems Review of Systems: Yes all other systems are reviewed and are negative Physical Exam Exam: Exam: General: AOx3, no acute distress. Thin, cachetic ENT: Poor dentition Resp: CTA bilaterally CVS: S1, S2, RRR GI: +BS, no distention. Epigastric abd pain Skin: Warm, dry Neuro: Cranial nerves II-XII grossly intact bilaterally. Motor grossly intact bilaterally Extremities: No edema Psych: Appropriate affect Vital Signs: Vital Signs: Last Vital Signs Temp 98.3 F 02/22/25 07:47 Pulse 65 02/22/25 07:47 Resp 14 02/22/25 07:47 BP 126/82 02/22/25 07:47 Pulse Ox 96 02/22/25 07:47 O2 Del Method Room Air 02/22/25 07:47 BMI result Body Mass Index 17.3 Objective Data Active Medications Acetaminophen (Acetaminophen 325 Mg Tablet) 650 mg PO Q6H PRN PRN Reason: Pain, Mild 1-3,fever,headache Bictegravir/Emtricitabine/Tenofovir (Bictegrav/Emtricit/Tenofov Ala Tablet) 1 tab PO DAILY [facility] Last Admin: 02/22/25 07:34 Dose: 1 tab Documented By: MILENA Calcium Carbonate (Calcium Carbonate 750 Mg Tab.Chew) 750 mg PO Q4H PRN PRN Reason: Heartburn Hydromorphone HCl (Hydromorphone Hcl 1 Mg/Ml Syringe) 1.5 mg IVPUSH Q3H PRN; Protocol PRN Reason: Pain, Severe (Pain Scale 7-10) Last Admin: 02/22/25 05:37 Dose: 1.5 mg Documented By: JESSY Metronidazole (Flagyl) 500 mg in 100 mls @ 100 mls/hr IV Q8H [facility] Last Admin: 02/22/25 08:28 Dose: 100 mls/hr Documented By: MILENA Ceftriaxone Sodium 1 gm/ (Sodium Chloride) 50 mls @ 100 mls/hr IV Q24H [facility] Last Infusion: 02/22/25 08:28 Dose: Infused Documented By: MILENA Dextrose/Lactated Ringer's (D5lr) 1,000 mls @ 100 mls/hr IVCONT .Q10H [facility] Last Admin: 02/22/25 07:07 Dose: 100 mls/hr Documented By: MILENA Indomethacin (Indomethacin 50 Mg Supp.Rect) 100 mg WA PREOP ONE Stop: 02/22/25 09:01 Ketorolac Tromethamine (Ketorolac Tromethamine 30 Mg/Ml Vial) 30 mg IVPUSH Q6H PRN PRN Reason: Pain, Moderate(Pain Scale 4-6) Last Admin: 02/22/25 01:02 Dose: 30 mg Documented By: JESSY Magnesium Hydroxide (Milk Of Magnesia 30 Ml Oral.Susp) 30 ml PO DAILY PRN PRN Reason: Constipation Melatonin (Melatonin 3 Mg Tablet) 6 mg PO BEDTIME PRN PRN Reason: Insomnia Methadone HCl (Methadone Hcl 20 Mg/2 Ml Oral.Conc) 60 mg PO DAILY@0800 [facility] Last Admin: 02/22/25 07:06 Dose: 60 mg Documented By: MILENA Co-signed By: CHELSEA Naloxone HCl (Naloxone Hcl 0.4 Mg/Ml Vial) 0.1 mg IVPUSH Q2M PRN PRN Reason: Respiratory Rate < 10 Ondansetron HCl (Ondansetron Hcl 4 Mg/2 Ml Vial) 4 mg IVPUSH Q8H PRN PRN Reason: Nausea and Vomiting Sodium Chloride (0.9 % Sodium Chloride Flush 3 Ml Syringe) 3 ml IVFLUSH QSHIFT [facility] Last Admin: 02/22/25 07:08 Dose: Not Given Documented By: MILENA Non-Admin Reason: IV Running Trimethoprim/Sulfamethoxazole (Sulfamethox/Trimeth 800/160 Tablet) 1 tab PO Q24H [facility] Last Admin: 02/21/25 16:58 Dose: 1 tab Documented By: FOSTEKR Labs 02/22/25 05:32 02/22/25 05:32 Labs: Laboratory Results - last 24 hr 02/21/25 02/21/25 02/21/25 08:45 13:22 16:23 MCV MCH MCHC RDW Plt Count MPV Immature Gran % (Auto) Neut % (Auto) Lymph % (Auto) [place] % (Auto) Eos % (Auto) Baso % (Auto) Lymph # (Auto) [place] # (Auto) Eos # (Auto) Baso # (Auto) Abs Immat Gran (auto) Absolute Neuts (auto) Absolute Nucleated RBC Nucleated RBC % (auto) PT 15.1 H INR 1.2 H Anion Gap Estim Creat Clear Calc Estimated GFR Random Glucose Fasting Glucose Lactic Acid 0.5 Calcium Total Bilirubin Direct Bilirubin AST ALT Alkaline Phosphatase Total Protein Albumin Lipase Urine Color Dark Yellow Urine Appearance Clear Urine pH 5.5 Ur Specific [place] >= 1.030 H Urine Protein 30 (1+) H Urine Glucose (UA) Negative Urine Ketones 15 Urine Blood Negative Urine Nitrite Negative Ur Leukocyte Esterase Trace H Urine RBC 0-2 Urine WBC 0-5 Ur Squamous Epith Cells 3-5 Urine Bacteria Trace Hyaline Casts 0-2 Urine Opiates Screen POSITIVE H Ur Buprenorphine Scrn Not Detected Ur Oxycodone Screen Not Detected Urine Methadone Screen Not Detected Urine Fentanyl Screen POSITIVE H Ur Barbiturates Screen Not Detected Ur Phencyclidine Scrn Not Detected Ur Amphetamines Screen Not Detected U Benzodiazepines Scrn Not Detected Urine Cocaine Screen POSITIVE H U Marijuana (THC) Screen Not Detected 02/22/25 05:32 MCV 85.0 MCH 29.2 MCHC 34.4 RDW 14.4 Plt Count 324 MPV 9.7 Immature Gran % (Auto) 0.4 Neut % (Auto) 85.7 H Lymph % (Auto) 6.6 L [place] % (Auto) 6.9 Eos % (Auto) 0.1 Baso % (Auto) 0.3 Lymph # (Auto) 0.4 L [place] # (Auto) 0.5 Eos # (Auto) 0.0 Baso # (Auto) 0.0 Abs Immat Gran (auto) 0.03 Absolute Neuts (auto) 5.7 Absolute Nucleated RBC 0.000 Nucleated RBC % (auto) 0.0 PT 15.6 H INR 1.3 H Anion Gap 10 L Estim Creat Clear Calc 124.4 Estimated GFR > 60 Random Glucose 128 H Fasting Glucose 130 H Lactic Acid Calcium 8.9 Total Bilirubin 0.9 Direct Bilirubin 0.4 AST 163 H ALT 321 H Alkaline Phosphatase 174 H Total Protein 6.3 L Albumin 3.8 Lipase 356 H Urine Color Urine Appearance Urine pH Ur Specific [place] Urine Protein Urine Glucose (UA) Urine Ketones Urine Blood Urine Nitrite Ur Leukocyte Esterase Urine RBC Urine WBC Ur Squamous Epith Cells Urine Bacteria Hyaline Casts Urine Opiates Screen Ur Buprenorphine Scrn Ur Oxycodone Screen Urine Methadone Screen Urine Fentanyl Screen Ur Barbiturates Screen Ur Phencyclidine Scrn Ur Amphetamines Screen U Benzodiazepines Scrn Urine Cocaine Screen U Marijuana (THC) Screen Assessment and Plan (1) Choledocholithiasis: Status: Acute (2) Transaminitis: Status: Acute Plan Pt is a 39-year-old female with a PMH significant for?HIV and opioid use disorder who presents to the ED with?abdominal pain, nausea, and vomiting since early this morning upon wakening. Pt is admitted to the hospital for treatment and further evaluation of choledocholithiasis with concerns for possible acute cholecystitis. Choledocholithiasis with question of acute cholecystitis CT with concerns for stricture in his sphincter of Oddi with moderate intrahepatic and extrahepatic biliary ductal dilation; US who CBD and concerns for acute cholecystitis MRCP in returning for stricture/stenosis of sphincter of Oddi with extrahepatic biliary ductal dilation adequate as pt was intolerant of procedure, but Labs with transaminitis, elevated lipase, trending down Will empirically treat with ceftriaxone and metronidazole, started 02/21 No sepsis: one episode of tachypnea likely secondary to pain and anxiety; lactic acid WNL GI consulted, plan on ERCP later today General surgery consulted, no acute surgery at this time, possible cholecystectomy after ERCP Analgesics and antiemetics Continue NPO, D5LR HIV/AIDS Pt immunocompromised as of 01/31/2025 with CD4 count of 6 Secondary to medication non-compliance Will empirically cover with abx as above ID consulted, question AIDS cholangiopathy Biktarvy daily, Bactrim DS daily as preventative for OIs Polysubstance use disorder Reports last snorted heroin about 1 week ago Not currently on methadone Tox screen positive for opiates, fentanyl, and cocaine Addiction medicine consulted, will restart methadone 60 mg daily Full Code Attending:?Dr. Rajput DVT Prophylaxis: Pneumatic compression due to possible surgical procedure Pt requires continued hospitalization she will undergo ERCP later in the day for choledocholithiasis with concerns for possible acute cholecystitis or AIDS cholangiopathy. Pt will require empiric IV antibiotics, IVF, and IV analgesics. Quality Stroke Does the patient have a stroke diagnosis?: No VTE Prior VTE?: No VTE Risk Level:: Medical - moderate - high VTE Device Contraindication: N/A - Device Ordered VTE Drug Contraindication: Treatment Not Indicated
--- NOTE | 2025-02-22 08:43 | PC.NURSE ---
attempt to call mother for update, not answering.
--- NOTE | 2025-02-22 09:57 | MHC.CM.PN ---
Addendum entered by Jane Mcqueen RN 02/22/25 10:34: Previously on methadone through [facility]. Restarted by recovery team here. Original Note: Patient lives in an apt w/ her 2 kids ages 2 and 6 YO - she is sole caregiver. Kids initially came to ER via EMS w/ patient, but are w/ patient's parents now. Independent w/ all care. Denies use of DME or services. +OUD, reports heroin use daily. 51A filed w/ [facility] office verbally via telephone. Declines resource guide. PCP Yaakov Schumacher MD No HCP. CM provided education and offered assistance. Patient declined. DP: Home self care vs recovery team intervention. Parents to transport. CM will continue to follow.
--- NOTE | 2025-02-22 12:32 | MHC.CLN ---
PT IS MODERATELY MALNOURISHED-QUALIFIES FOR NON-SEVERE MALNUTRITION IN THE CONTEXT OF SOCIAL/ENVIRONMENTAL/BEHAVIORAL PT WITH MILDLY DEPLETED SUBCUTANEOUS FAT AND MUSCLE MASS WITH 26% SIGNIFICANT WT LOSS X 1 YEAR AND 4 MONTHS WITH POLYSUBSTANCE ABUSE IN ADDITION TO IMMUNO-COMPROMISED WITH HIV PT IS CURRENTLY NPO WHEN DIET TO ADVANCE; RECOMMEND REGULAR WITH ENSURE SUPPLEMENT BID SUPP TO PROVIDE 700KCALS, 40G PROTEIN FOLLOWING FOR DIET ADVANCEMENT SEE FULL ASSESSMENT
--- NOTE | 2025-02-22 14:04 | PM.EVENT ---
Event Note Date of Service: 02/22/25 Event Note: GI ERCP dictated 1 CBD stone extracted with balloon after sphincterotomy. no stricture duodenal ulceration and pepe esophagitis also noted. Rec start clear liquids, omeprazole and diflucan advance diet as tolerated. Time Spent With Patient Time: Total time managing care of this patient today ____ minutes.
--- NOTE | 2025-02-22 14:12 | P.BOP_ITS ---
Brief Operative Note Date of Service: 02/22/25 Pre-op diagnosis: gallsonte pancreatitis Post-op diagnosis: same Procedure: ERCP Surgeon: Kenn Inamn MD Anesthesia: MAC Was an Watch Assembly Instructor used for this Procedure?: No Estimated blood loss (mL): 0 Condition: stable Disposition: PACU
[2025-02-22] MEDS: Sulfamethox/Trimeth 800/160 TABLET 1 TAB PO (15:55)
--- NOTE | 2025-02-22 16:16 | PC.NURSE ---
pt doing well after ERCP, voided in the bathroom, steady on feet, took ABT.
--- NOTE | 2025-02-22 16:49 | MHC.RECOVRN ---
Addiction Consult received for pt admitted with reported opiate use.? Recovery evaluation completed. Please see for additional details.? The patient was initiated on methadone, and the dose will be titrated to a therapeutic level, as she was previously maintained on 130 mg at [facility] and reports that her withdrawal symptoms and cravings were well controlled at that dose.? 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 Pt declines needs for further intervention or out pt appt for [facility] treatment at this time.? Pt provided ACS team contact information for questions or concerns.? ACS team available as needed for ongoing support
--- NOTE | 2025-02-22 20:56 | OP_ITS ---
DATE OF SERVICE: 02/22/2025 SURGEON: Kenn Inman MD INDICATIONS: Elevated liver function tests and dilated common bile duct as well as gallstone pancreatitis. PREOPERATIVE DIAGNOSIS: POSTOPERATIVE DIAGNOSIS: PROCEDURE PERFORMED: ERCP with sphincterotomy and stone extraction. ESTIMATED BLOOD LOSS: COMPLICATIONS: ANESTHESIA: General anesthesia. ASSISTANTS: SPECIMENS: DESCRIPTION OF PROCEDURE: A history and physical was performed. The risks and benefits of the procedure were explained to the patient, and informed consent was obtained. The patient was placed in the prone position with a wedge under the right shoulder. The Olympus therapeutic duodenoscope was introduced into the esophagus, stomach, and duodenum. Examination was performed. The scope was removed. She tolerated the procedure well and was returned to the recovery area in stable condition. FINDINGS: Limited examination of the esophagus, stomach, and duodenum was remarkable for changes consistent with Sima esophagitis and linear ulcerations in the duodenum. The major papilla appeared normal with clear yellow bile draining. Guidewire and sphincterotome were advanced into the common bile duct, and cholangiography showed at least 1 filling defect consistent with a stone. Sphincterotomy was performed in the usual manner to approximately 8 mm, and multiple balloon sweeps of the common bile duct produced one 6 to 7 mm stone. There was excellent drainage of clear yellow bile at the termination of the procedure, and occlusion cholangiography prior to this showed no further filling defects. No pancreatogram was attempted or obtained. IMPRESSION: Common bile duct stone. RECOMMENDATION: 1. Monitor liver function tests. 2. Begin clear liquid diet and advance as tolerated. 3. Diflucan and omeprazole for additional findings described above. MD FARHEEN Hayden/LEATHA / [id number]
[2025-02-23] MEDS: metroNIDAZOLE/NS 500 MG/100 ML PIGGYBACK 100 MG IV ×2 (00:15→08:28)
[2025-02-23] MEDS: Dextrose 5 % and Lactated Ring 1,000 ML 100 ML IVCONT ×2 (00:21→14:34)
[2025-02-23 03:19] VITALS: BP 136/89; PULSE 69; RESP 18; TEMP 36.4; O2SAT 98
[2025-02-23 06:16] LABS: Hematocrit 37.3 % (37.0-47.0); Hemoglobin 12.6 g/dl (12.0-16.0); Mean Corpuscular HGB Conc 33.8 g/dl (31.0-35.0); Mean Corpuscular Hemoglobin 29.0 pg (27.0-33.0); Mean Corpuscular Volume 85.9 fL (80.0-98.0); NRBC Abs Auto 0.000 X10*3/uL (0.0-0.012); NRBC Pct Auto 0.0 /100WBC (0.0-0.2); Platelet Count 279 X10*3/uL (160-400); Red Blood Count 4.34 X10*6/uL (4.20-5.50); White Blood Count 5.0 X10*3/uL (4.8-10.8)
[2025-02-23 06:40] LABS: Alanine Aminotransferase 191 U/L (0-31); Albumin Level 3.5 g/dL (3.5-5.0); Alkaline Phosphatase 127 U/L (39-117); Anion Gap 11 (12-20); Aspartate Amino Transferase 58 U/L (5-31); Blood Urea Nitrogen 7 mg/dL (9-16); Calcium 8.3 mg/dL (8.4-10.2); Carbon Dioxide 24 mmol/L (22-29); Chloride 108 mmol/L (96-108); Creatinine Clr Calc Pharmacy 106.6; Estimated Glomerular Filt Rate > 60; Potassium 3.6 mmol/L (3.3-5.1); Sodium 139 mmol/L (135-145); Total Protein 5.9 g/dL (6.5-8.0)
[2025-02-23 07:28] VITALS: BP 120/78; PULSE 68; RESP 16; TEMP 36.8; O2SAT 99
--- NOTE | 2025-02-23 08:02 | P.PNGS_ITS ---
Subjective Subjective Date of Service: 02/23/25 Interval history: Says she feels much better today The pain has resolved Asking to go home No reported vomiting No fever ERCP done yesterday - CBD stone removed Physical Exam 2 Vital Signs: Vital Signs: Last Vital Signs Temp 98.2 F 02/23/25 07:28 Pulse 68 02/23/25 07:28 Resp 16 02/23/25 07:28 BP 120/78 02/23/25 07:28 Pulse Ox 99 02/23/25 07:28 O2 Del Method Room Air 02/23/25 07:28 BMI result Body Mass Index 17.3 Const: General: comfortable and no acute distress Resp: Effort & Inspection: normal respiratory effort Cardio: Rate: regular rate GI: Palpation (GI): Soft to palpation, not firm, nontender and no guarding Objective Data Active Medications Acetaminophen (Acetaminophen 325 Mg Tablet) 650 mg PO Q6H PRN PRN Reason: Pain, Mild 1-3,fever,headache Last Admin: 02/22/25 22:14 Dose: 650 mg Documented By: NETO Bictegravir/Emtricitabine/Tenofovir (Bictegrav/Emtricit/Tenofov Ala Tablet) 1 tab PO DAILY [facility] Last Admin: 02/22/25 07:34 Dose: 1 tab Documented By: MILENA Calcium Carbonate (Calcium Carbonate 750 Mg Tab.Chew) 750 mg PO Q4H PRN PRN Reason: Heartburn Fluconazole (Fluconazole 150 Mg Tablet) 300 mg PO ONCE ONE Stop: 02/23/25 09:01 Hydromorphone HCl (Hydromorphone Hcl 1 Mg/Ml Syringe) 1.5 mg IVPUSH Q3H PRN; Protocol PRN Reason: Pain, Severe (Pain Scale 7-10) Last Admin: 02/23/25 05:11 Dose: 1.5 mg Documented By: NETO Metronidazole (Flagyl) 500 mg in 100 mls @ 100 mls/hr IV Q8H [facility] Last Infusion: 02/23/25 01:20 Dose: Infused Documented By: NETO Ceftriaxone Sodium 1 gm/ (Sodium Chloride) 50 mls @ 100 mls/hr IV Q24H [facility] Last Infusion: 02/22/25 08:28 Dose: Infused Documented By: MILENA Dextrose/Lactated Ringer's (D5lr) 1,000 mls @ 100 mls/hr IVCONT .Q10H [facility] Last Infusion: 02/23/25 01:20 Dose: 100 mls/hr Documented By: NETO Ketorolac Tromethamine (Ketorolac Tromethamine 30 Mg/Ml Vial) 30 mg IVPUSH Q6H PRN PRN Reason: Pain, Moderate(Pain Scale 4-6) Last Admin: 02/23/25 02:34 Dose: 30 mg Documented By: NETO Magnesium Hydroxide (Milk Of Magnesia 30 Ml Oral.Susp) 30 ml PO DAILY PRN PRN Reason: Constipation Melatonin (Melatonin 3 Mg Tablet) 6 mg PO BEDTIME PRN PRN Reason: Insomnia Last Admin: 02/22/25 22:14 Dose: 6 mg Documented By: NETO Methadone HCl (Methadone Hcl 20 Mg/2 Ml Oral.Conc) 70 mg PO DAILY@0800 [facility] Naloxone HCl (Naloxone Hcl 0.4 Mg/Ml Vial) 0.1 mg IVPUSH Q2M PRN PRN Reason: Respiratory Rate < 10 Naloxone HCl (Naloxone Hcl 0.4 Mg/Ml Vial) 0.04 mg IVPUSH Q5M PRN PRN Reason: Excessive sedation or RR < 8 Omeprazole (Omeprazole 20 Mg Capsule.Dr) 20 mg PO DAILY@0630 [facility] Last Admin: 02/23/25 05:11 Dose: 20 mg Documented By: NETO Ondansetron HCl (Ondansetron Hcl 4 Mg/2 Ml Vial) 4 mg IVPUSH Q8H PRN PRN Reason: Nausea and Vomiting Last Admin: 02/23/25 00:20 Dose: 4 mg Documented By: NETO Sodium Chloride (0.9 % Sodium Chloride Flush 3 Ml Syringe) 3 ml IVFLUSH QSHIFT [facility] Last Admin: 02/22/25 19:32 Dose: Not Given Documented By: NETO Non-Admin Reason: IV Running Trimethoprim/Sulfamethoxazole (Sulfamethox/Trimeth 800/160 Tablet) 1 tab PO Q24H [facility] Last Admin: 02/22/25 15:55 Dose: 1 tab Documented By: BOBLM Labs 02/23/25 05:38 02/23/25 05:38 Labs: Laboratory Results - last 24 hr 02/23/25 05:38 MCV 85.9 MCH 29.0 MCHC 33.8 RDW 14.8 Plt Count 279 MPV 9.6 Absolute Nucleated RBC 0.000 Nucleated RBC % (auto) 0.0 Anion Gap 11 L Estim Creat Clear Calc 106.6 Estimated GFR > 60 Random Glucose 100 Calcium 8.3 L D Total Bilirubin 0.5 AST 58 H ALT 191 H Alkaline Phosphatase 127 H Total Protein 5.9 L Albumin 3.5 Microbiology Microbiology Results: Microbiology 02/21/25 08:44 Blood Culture - Preliminary Blood - Venous No growth after 24 hours. 02/21/25 08:46 Blood Culture - Preliminary Blood - Venous No growth after 24 hours. Procedures Date of Service Date of Service: 02/23/25 Progress Note: A&P Assessment and plan (1) Transaminitis: Status: Acute Assessment and Plan: ERCP done yesterday - CBD stone noted, removed LFTs now near normal Abdomen is soft, benign Explained to her the option of proceeding with cholecystectomy in view of possibility of recurrence Says she wants to go home Does not have any surgical intervention for now We will follow Clinically looks well Time Spent With Patient Time: Total time managing care of this patient today ____ minutes. Quality Stroke Does the patient have a stroke diagnosis?: No VTE Prior VTE?: No VTE Risk Level:: Medical - moderate - high VTE Device Contraindication: N/A - Device Ordered VTE Drug Contraindication: Treatment Not Indicated
[2025-02-23] MEDS: methADONE HCl 20 MG/2 ML ORAL.CONC 70 MG PO (08:28)
[2025-02-23] MEDS: Bictegrav/Emtricit/Tenofov Ala TABLET 1 TAB PO (08:28)
[2025-02-23] MEDS: 0.9 % Sodium Chloride Flush 3 ML SYRINGE IVFLUSH (08:29)
--- NOTE | 2025-02-23 08:59 | P.PNGI_ITS ---
Subjective Subjective Date of Service: 02/23/25 Interval History: feels much better tolerating liquids wants to eat Critical Care Time (minutes): 0 Physical Exam 2 Vital Signs: Vital Signs: Last Vital Signs Temp 98.2 F 02/23/25 07:28 Pulse 68 02/23/25 07:28 Resp 16 02/23/25 07:28 BP 120/78 02/23/25 07:28 Pulse Ox 99 02/23/25 07:28 O2 Del Method Room Air 02/23/25 07:28 BMI result Body Mass Index 17.3 GI: Other: abdomen is soft and nontender Objective Data Labs 02/23/25 05:38 02/23/25 05:38 Labs: Laboratory Results - last 24 hr 02/23/25 05:38 WBC 5.0 RBC 4.34 Hgb 12.6 Hct 37.3 MCV 85.9 MCH 29.0 MCHC 33.8 RDW 14.8 Plt Count 279 MPV 9.6 Absolute Nucleated RBC 0.000 Nucleated RBC % (auto) 0.0 Sodium 139 Potassium 3.6 Chloride 108 Carbon Dioxide 24 Anion Gap 11 L BUN 7 L Creatinine 0.56 Estim Creat Clear Calc 106.6 Estimated GFR > 60 Random Glucose 100 Calcium 8.3 L D Total Bilirubin 0.5 AST 58 H ALT 191 H Alkaline Phosphatase 127 H Total Protein 5.9 L Albumin 3.5 Microbiology Microbiology Results: Microbiology 02/21/25 08:44 Blood - Venous Blood Culture - Preliminary No growth after 24 hours. 02/21/25 08:46 Blood - Venous Blood Culture - Preliminary No growth after 24 hours. Procedures Date of Service Date of Service: 02/23/25 Progress Note: A&P Assessment and plan (1) Choledocholithiasis: Status: Acute (2) Sima esophagitis: Status: Acute (3) Duodenal ulcer disease: Status: Acute Assessment and Plan: doing well post ERCP continue ppi, antifungal diet advanced d/c when stable f/u for eventual lap marycarmen Time Spent With Patient Time: Total time managing care of this patient today ____ minutes. Quality Stroke Does the patient have a stroke diagnosis?: No VTE Prior VTE?: No VTE Risk Level:: Medical - moderate - high VTE Device Contraindication: N/A - Device Ordered VTE Drug Contraindication: Treatment Not Indicated
--- NOTE | 2025-02-23 09:37 | HO.POSTANES ---
Post Anesthesia Evaluation Post Anesthesia Evaluation Date of Service: 02/23/25 Vital Signs: Vital Signs Temp Pulse Resp BP Pulse Ox O2 Del Method 02/23/25 07:28 98.2 F 68 16 120/78 99 Room Air 02/23/25 03:19 97.6 F 69 18 136/89 98 Room Air 02/22/25 23:06 98.9 F 65 16 133/79 96 Room Air Anesthesia: General Mental Status: Awake Pain Control: Satisfactory Nausea/Vomiting: None Hydration: Adequate Anesthesia-Related Issues: No Anes. Related Issues
--- NOTE | 2025-02-23 12:35 | MHC.CM.PN ---
Patient not medically cleared for dc at this time. Advancing diet. CM will continue to follow.
--- NOTE | 2025-02-23 13:38 | MHC.CLN ---
F/U PT IS MODERATELY MALNOURISHED-QUALIFIES FOR NON-SEVERE MALNUTRITION IN THE CONTEXT OF SOCIAL/ENVIRONMENTAL/BEHAVIORAL SEE FULL ASSESSMENT DATED 02/22/25 PO INTAKE 100% X1 MEAL DIET ADVANCED TO LOW FAT RECOMMEND ADDING ENSURE SUPPLEMENT BID SUPP TO PROVIDE 700KCALS, 40G PROTEIN MONITOR PO INTAKE AND ENCOURAGE SUPPLEMENT
--- NOTE | 2025-02-23 14:14 | HO.ADDICTPRO ---
Subjective Subjective Date of Service: 02/23/25 Reason For Visit: Choledocholithiasis w/Obstructing Stone Interim History: Patient seen in follow up for OUD and methadone dose titration She is awake, alert, eating lunch and watching TV She reports feeling better as dose continues to increase Current methadone dose 70mg Goal is to continue titration outpatient Tearful during interview, sharing that her children have been placed in foster care She states that her goal is to enter treatment following discharge from [facility] Discussed discontinuation of methadone recently, and she states that she was unable to get to the clinic d/t feeling so physically ill and unable to get out of bed. Encouraged patient to communicate with [facility] or any other treatment providers in the future to avoid abrupt discontinuation of treatment Withdrawal sx resolved Review of Systems Acute medical concerns: Yes Review of Systems Constitutional: Reports as per HPI and Reports no additional constitutional complaints Mental Status Exam Mental Status Exam Level of Consciousness: Awake, Appropriate and Alert Patient Behavior: Appropriate Mood Description: Sad Affect Description: Sad Speech Pattern: Clear Thought Content: positive for Intact Judgement: Good Diagnostics Vital Signs (24Hr): Vital Signs - 24 hr 02/22/25 14:17 02/22/25 14:22 02/22/25 14:27 Temperature Pulse Rate 97 86 79 Respiratory Rate 18 18 16 Blood Pressure 134/88 142/93 H 122/85 Pulse Oximetry 99 97 97 Oxygen Delivery Method Room Air Room Air Room Air 02/22/25 14:42 02/22/25 15:00 02/22/25 19:14 Temperature 98.9 F 97.2 F 98.3 F Pulse Rate 72 67 76 Respiratory Rate 16 16 18 Blood Pressure 123/81 117/74 124/79 Pulse Oximetry 96 96 98 Oxygen Delivery Method Room Air Room Air Room Air 02/22/25 23:06 02/23/25 03:19 02/23/25 07:28 Temperature 98.9 F 97.6 F 98.2 F Pulse Rate 65 69 68 Respiratory Rate 16 18 16 Blood Pressure 133/79 136/89 120/78 Pulse Oximetry 96 98 99 Oxygen Delivery Method Room Air Room Air Room Air BMI result Body Mass Index 17.3 Labs 02/23/25 05:38 02/23/25 05:38 Labs: Laboratory Results - last 48 hr 02/21/25 02/22/25 02/23/25 16:23 05:32 05:38 WBC 6.7 5.0 RBC 4.59 4.34 Hgb 13.4 12.6 Hct 39.0 37.3 MCV 85.0 85.9 MCH 29.2 29.0 MCHC 34.4 33.8 RDW 14.4 14.8 Plt Count 324 279 MPV 9.7 9.6 Immature Gran % (Auto) 0.4 Neut % (Auto) 85.7 H Lymph % (Auto) 6.6 L [place] % (Auto) 6.9 Eos % (Auto) 0.1 Baso % (Auto) 0.3 Lymph # (Auto) 0.4 L [place] # (Auto) 0.5 Eos # (Auto) 0.0 Baso # (Auto) 0.0 Abs Immat Gran (auto) 0.03 Absolute Neuts (auto) 5.7 Absolute Nucleated RBC 0.000 0.000 Nucleated RBC % (auto) 0.0 0.0 PT 15.1 H 15.6 H INR 1.2 H 1.3 H Sodium 135 139 Potassium 3.4 3.6 Chloride 103 108 Carbon Dioxide 25 24 Anion Gap 10 L 11 L BUN 12 7 L Creatinine 0.48 L 0.56 Estim Creat Clear Calc 124.4 106.6 Estimated GFR > 60 > 60 Random Glucose 128 H 100 Fasting Glucose 130 H Calcium 8.9 8.3 L D Total Bilirubin 0.9 0.5 Direct Bilirubin 0.4 AST 163 H 58 H ALT 321 H 191 H Alkaline Phosphatase 174 H 127 H Total Protein 6.3 L 5.9 L Albumin 3.8 3.5 Lipase 356 H Imaging Radiology Impressions: ITS Impressions Chest X-Ray 02/21/25 07:42 IMPRESSION: No active pulmonary disease. 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 Underlying lesion cannot be entirely excluded. Ascites and anasarca, mild.. Autoimmune disorders among other etiologies should be considered. Fleischner guidelines were followed. Electronically signed by: Jose Pinto MD 02/21/2025 09:14 AM EST RP Abdomen Ultrasound 02/21/25 08:56 IMPRESSION: Gallstones and echogenic bile present.. Gallbladder wall is thickened measuring 1.7 cm, with pericholecystic fluid. Sonographic Rawls's sign could not be evaluated, as the patient is medicated. Findings suspicious for cholecystitis. Clinically correlate. Further evaluation with HIDA scan as clinically indicated. Electronically signed by: Ash Bbo MD 02/21/2025 09:45 AM EST RP Cholangiopancreatography MRI 02/21/25 12:22 IMPRESSION: Inadequate examination. 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 No lithiasis. Hepatomegaly, mild. Ascites, small volume. Electronically signed by: Jose Pinto MD 02/21/2025 01:01 PM EST RP Guidance Fluoroscopy 02/22/25 13:29 IMPRESSION: Fluoroscopy during procedure. Please see procedure report for additional information. Electronically signed by: Cliff Galloway MD 02/23/2025 07:21 AM EST RP Medications Medications Current Medications Acetaminophen (Acetaminophen 325 Mg Tablet) 650 mg PO Q6H PRN PRN Reason: Pain, Mild 1-3,fever,headache Last Admin: 02/22/25 22:14 Dose: 650 mg Bictegravir/Emtricitabine/Tenofovir (Bictegrav/Emtricit/Tenofov Ala Tablet) 1 tab PO DAILY [facility] Last Admin: 02/23/25 08:28 Dose: 1 tab Calcium Carbonate (Calcium Carbonate 750 Mg Tab.Chew) 750 mg PO Q4H PRN PRN Reason: Heartburn Hydromorphone HCl (Hydromorphone Hcl 1 Mg/Ml Syringe) 1.5 mg IVPUSH Q3H PRN; Protocol PRN Reason: Pain, Severe (Pain Scale 7-10) Last Admin: 02/23/25 05:11 Dose: 1.5 mg Metronidazole (Flagyl) 500 mg in 100 mls @ 100 mls/hr IV Q8H [facility] Last Infusion: 02/23/25 09:57 Dose: Infused Ceftriaxone Sodium 1 gm/ (Sodium Chloride) 50 mls @ 100 mls/hr IV Q24H [facility] Last Infusion: 02/23/25 11:15 Dose: Infused Dextrose/Lactated Ringer's (D5lr) 1,000 mls @ 100 mls/hr IVCONT .Q10H [facility] Last Infusion: 02/23/25 01:20 Dose: 100 mls/hr Ketorolac Tromethamine (Ketorolac Tromethamine 30 Mg/Ml Vial) 30 mg IVPUSH Q6H PRN PRN Reason: Pain, Moderate(Pain Scale 4-6) Last Admin: 02/23/25 02:34 Dose: 30 mg Magnesium Hydroxide (Milk Of Magnesia 30 Ml Oral.Susp) 30 ml PO DAILY PRN PRN Reason: Constipation Melatonin (Melatonin 3 Mg Tablet) 6 mg PO BEDTIME PRN PRN Reason: Insomnia Last Admin: 02/22/25 22:14 Dose: 6 mg Methadone HCl (Methadone Hcl 20 Mg/2 Ml Oral.Conc) 70 mg PO DAILY@0800 [facility] Last Admin: 02/23/25 08:28 Dose: 70 mg Naloxone HCl (Naloxone Hcl 0.4 Mg/Ml Vial) 0.1 mg IVPUSH Q2M PRN PRN Reason: Respiratory Rate < 10 Naloxone HCl (Naloxone Hcl 0.4 Mg/Ml Vial) 0.04 mg IVPUSH Q5M PRN PRN Reason: Excessive sedation or RR < 8 Omeprazole (Omeprazole 20 Mg Capsule.Dr) 20 mg PO DAILY@0630 [facility] Last Admin: 02/23/25 05:11 Dose: 20 mg Ondansetron HCl (Ondansetron Hcl 4 Mg/2 Ml Vial) 4 mg IVPUSH Q8H PRN PRN Reason: Nausea and Vomiting Last Admin: 02/23/25 00:20 Dose: 4 mg Sodium Chloride (0.9 % Sodium Chloride Flush 3 Ml Syringe) 3 ml IVFLUSH QSHIFT [facility] Last Admin: 02/23/25 08:29 Dose: 3 ml Trimethoprim/Sulfamethoxazole (Sulfamethox/Trimeth 800/160 Tablet) 1 tab PO Q24H [facility] Last Admin: 02/22/25 15:55 Dose: 1 tab Allergies Allergies Allergy/AdvReac Type Severity Reaction Status Date / Time amoxicillin (AMOXICILLIN) Allergy Unknown HIVES, rash Verified 02/21/25 06:22 Penicillins (PENICILLINS) Allergy Unknown HIVES Verified 02/21/25 06:22 ENVIRONMENTAL Allergy Unknown UNKNOWN Uncoded 02/21/25 06:22 Assessment & Plan Assessment & Plan (1) Opioid use disorder: Status: Acute Code(s): F11.90 - Opioid use, unspecified, uncomplicated Assessment and Plan: methadone 70mg QD 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
[2025-02-23 16:00] VITALS: BP 127/80; PULSE 97; RESP 18; TEMP 36.8; O2SAT 99
--- NOTE | 2025-02-23 16:21 | PM.DS ---
DS: Providers Provider Date of admission: 02/21/25 10:54 Date of discharge: 02/23/25 Primary care physician: Yaakov Schumacher MD Consults: 02/21/25 10:52 Consult to Gastroenterology Routine Consulting Provider: [facility] Reason for consultation: ?Obstructive gallstone 02/21/25 10:55 Consult to General Surgery Routine Consulting Provider: [facility] General Surgeons Reason for consultation: Choledocholithiasis or obstructing stone w/?Cholecystitis 02/21/25 11:28 Addiction Medicine Provider Routine Consulting Provider: [facility] Reason for consultation: OUD 02/21/25 12:50 Consult to Infectious Diseases Routine Consulting Provider: [facility] Infectious Disease Center Reason for consultation: HIV with CD4 Count of 6 on 01/31/2025 DS: Diagnosis Discharge Diagnosis (1) Opioid use disorder: Status: Acute DS: Summary Hospital Course Hospital Course: From admission HPI: Date of Service: 02/21/25 Attending physician on admission: Matias Rajput Chief Complaint: Abdominal pain Pt is a 39-year-old female with a PMH significant for?HIV and opioid use disorder who presents to the ED with?abdominal pain, nausea, and vomiting since early this morning upon wakening. Abdominal pain is sharp and stabbing in nature and centrally located with no clear pattern of radiation. Pt reports she has had similar episodes in the past but they went away. Pain has been nonstop since onset and much worse than prior episodes. Also experiencing difficulty breathing secondary to pain. No chest pain or pressure. No cough. Pt reports she has been compliant with her HIV medications. Last snorted heroin a few days ago, pt vague on details. Denies IVDU. Currently not on methadone. In the ED pt's vitals has been stable. Labs were significant for leukopenia of 3.7, T bili 1.1, AST 558, ALT 531, alk-phos 197, and lipase 1155. 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 Also showed mild ascites and anasarca. Abdominal ultrasound showed findings concerning for CBD dilation and acute cholecystitis. CXR showed negative for acute pulmonary disease. EKG with nonspecific ST changes anterior leads, and QTc 468. Pt was treated in the ED with IVF, metoclopramide, diphenhydramine, famotidine, ketorolac, morphine, with Dilaudid, metronidazole, and levofloxacin. Pt is admitted to the hospital for treatment and further evaluation of choledocholithiasis with concerns for possible acute cholecystitis. Hospital course: Pt was admitted to the hospital of experiencing intractable abdominal pain and workup in the ED concerning for possible obstructive choledocholithiasis and cholecystitis. Pt underwent MRCP which was limited as pt was unable to tolerate procedure, but did show stricture/stenosis sphincter of Oddi with extrahepatic biliary ductal dilation. Pt then underwent ERCP on 02/22 which found 1 gallstone that was removed. Also found duodenal ulcerations and Sima esophagitis. Pt was also noted a few weeks ago to be immunocompromised with total CD4 count of 6. Was seen and evaluated by Infectious Disease who recommended starting on Bactrim DS daily, Biktarvy daily, and treating esophageal candidiasis with fluconazole 200 mg daily times 14 days. Pt also seen and evaluated by General surgery who elected to hold off on cholecystectomy at this time until pt was more stable and CD4 count improved. Pt will be discharged on levofloxacin and metronidazole x4 days for possible AIDS cholangiopathy. For duodenal ulcerations pt should take omeprazole 20 mg daily for the next 4 weeks. Time Attestation Discharge Coordination Time (in mins): 35 Quality: Safe Use of Opioids Does Pt have an Active Cancer Diagnosis on the Problem List?: No Quality: Stroke Does the patient have a stroke diagnosis?: No Physical Exam Exam: Exam: General: AOx3, no acute distress Resp: CTA bilaterally CVS: S1, S2, RRR GI: +BS, NT, no distention. Overall benign abd exam Skin: Warm, dry Neuro: Cranial nerves II-XII grossly intact bilaterally. Motor grossly intact bilaterally Extremities: No edema Psych: Appropriate affect Vital Signs: Vital Signs: Last Vital Signs Temp 98.2 F 02/23/25 07:28 Pulse 68 02/23/25 07:28 Resp 16 02/23/25 07:28 BP 120/78 02/23/25 07:28 Pulse Ox 99 02/23/25 07:28 O2 Del Method Room Air 02/23/25 07:28 BMI result Body Mass Index 17.3 DS: Data Data Completed and Pending Labs on day of discharge: Laboratory Results - last 24 hr 02/23/25 05:38 WBC 5.0 RBC 4.34 Hgb 12.6 Hct 37.3 MCV 85.9 MCH 29.0 MCHC 33.8 RDW 14.8 Plt Count 279 MPV 9.6 Absolute Nucleated RBC 0.000 Nucleated RBC % (auto) 0.0 Sodium 139 Potassium 3.6 Chloride 108 Carbon Dioxide 24 Anion Gap 11 L BUN 7 L Creatinine 0.56 Estim Creat Clear Calc 106.6 Estimated GFR > 60 Random Glucose 100 Calcium 8.3 L D Total Bilirubin 0.5 AST 58 H ALT 191 H Alkaline Phosphatase 127 H Total Protein 5.9 L Albumin 3.5 Preliminary micro results at discharge 02/21/25 08:44 Blood Culture - Preliminary Blood - Venous No growth after 48 hours. 02/21/25 08:46 Blood Culture - Preliminary Blood - Venous No growth after 48 hours. Discharge Plan Discharge Anticipated Discharge Date/Time: 02/23/25 15:04 Patient Disposition: Home, Self-Care Discharge Diagnosis: Choledocholithiasis with obstructing stone Referrals: Sherif Quiñonez MD [Physician, General Surgery] - 2 Weeks Name,MD Yaakov [Primary Care Provider, Internal Medicine] - 1 Week Discharge Medications: New fluconazole 200 mg tablet 200 mg PO DAILY Qty: 13 0RF Rx Instructions: Take one tablet daily for 14 days, 02/24-03/07. metronidazole 500 mg tablet 500 mg PO Q8H Qty: 13 0RF Rx Instructions: Take one tablet three times a day for the next 4 days, from evening of 02/23 and ending on evening of 02/27. levofloxacin 750 mg tablet 750 mg PO DAILY Qty: 4 0RF Rx Instructions: Take one tablet daily for the next 4 days, from 02/24-02/27 sulfamethoxazole-trimethoprim [Bactrim DS] 800-160 mg tablet 1 tab PO DAILY Qty: 60 0RF Rx Instructions: Take 1 tablet daily to prevent opportunistic infections. omeprazole 20 mg capsule,delayed release(DR/EC) 20 mg PO DAILY Qty: 30 0RF Rx Instructions: Take one tablet daily. Continued Biktarvy 50-200-25 mg Tablet 1 tab PO DAILY Discharge Orders: Discharge Order (Routine); Ordered 02/23/25 Ordered By: Milan Garcia Activity on Discharge: As tolerated Stand Alone Forms: Patient Portal Discharge page Print Language: Danish Care Plan Goals: See below Health Concerns: Choledocholithiasis with obstructive gallstone Acute cholecystitis Pancreatitis Elevated liver enzymes Polysubstance use disorder Plan of Treatment: You were admitted to the hospital after experiencing severe abdominal pain and were found to have choledocholithiasis with obstructive stone. You underwent an ERCP by GI on 02/22 which removed 1 gallstone and also found esophageal candidiasis. You were also seen and evaluated by General surgery and elected to not do a cholecystectomy at this time. -- for concerns about acute cholecystitis, take metronidazole 500 mg 3 times a day and levofloxacin 750 mg once daily for the next 3 days, ending 02/26. -- for acute esophageal candidiasis as noted on ERCP, take fluconazole 200 mg daily for the next 14 days, ending 03/07 -- 4 duodenal ulcerations, take omeprazole 20 mg daily for the next 4 weeks -- you were also noted to have a very low CD4 count of 6 at the end of January. Take 1 tablet Bactrim DS once daily until told otherwise by Infectious Disease. -- resume your Biktarvy and follow up with Infectious Disease for additional treatment and monitoring of your HIV/AIDS -- follow up outpatient with General surgery for elective cholecystectomy. Assessment: See discharge summary
--- NOTE | 2025-02-23 16:26 | MHC.CM.PN ---
Patient medically cleared for dc home self care. Private transport.
[2025-02-23] MEDS: Sulfamethox/Trimeth 800/160 TABLET 1 TAB PO (17:20)
== END 2025-02-23 17:35 | disposition home or self-care (01) ==
LOC: HO.ED 08:22 → HO.EDOVER 10:59 → HO.S3 15:37
PROVIDERS: Internal Medicine; Internal Medicine Gastroenterology; Admitting Provider Student in an Organized Health Care Education/Training Program; Emergency Provider Student in an Organized Health Care Education/Training Program; PCP Internal Medicine Geriatric Medicine; Visit Provider Student in an Organized Health Care Education/Training Program
PROC: 0FC98ZZ Extirpation of Matter from Common Bile Duct, Via Natural or Artificial Opening Endoscopic (ICD-10-PCS; CPT 43260; principal; 2025-02-22 13:30)
DX: K80.51 Calculus of bile duct without cholangitis or cholecystitis with obstruction (principal); B20 Human immunodeficiency virus [HIV] disease; B37.81 Candidal esophagitis; K26.9 Duodenal ulcer, unspecified as acute or chronic, without hemorrhage or perforation; F17.210 Nicotine dependence, cigarettes, uncomplicated; F11.20 Opioid dependence, uncomplicated; F19.90 Other psychoactive substance use, unspecified, uncomplicated; Z71.6 Tobacco abuse counseling; Z79.899 Other long term (current) drug therapy
CPT/HCPCS: 36415; 71045; 74177; 74181; 76705; 80048; 80053; 80307; 81001; 82248; 83605; 83690; 83735; 84702; 85025; 85027; 85610; 87040; 93005; 99285; J0131; J0696; J1171; J1200; J1308; J1610; J1630; J1836; J1885; J1956; J2270; J2405; J2765; J3010; J3430; J7120; Q9967; S9485

== ENCOUNTER → 2025-02-21 06:22 | Outpatient (BNV) | payer MEDICAID, SELFPAY | PROVIDERS: Emergency Provider Student in an Organized Health Care Education/Training Program; PCP Internal Medicine Geriatric Medicine; Visit Provider Radiology Diagnostic Radiology | DX: R18.8 Other ascites (principal); R16.0 Hepatomegaly, not elsewhere classified; K80.20 Calculus of gallbladder without cholecystitis without obstruction; K82.8 Other specified diseases of gallbladder; R07.9 Chest pain, unspecified | CPT/HCPCS: 71045; 74177; 74181; 76705 ==

== ENCOUNTER → 2025-02-21 06:44 | Outpatient (BNV) | payer MEDICAID, SELFPAY | PROVIDERS: Admitting Provider Student in an Organized Health Care Education/Training Program; Emergency Provider Student in an Organized Health Care Education/Training Program; PCP Internal Medicine Geriatric Medicine; Visit Provider Internal Medicine Cardiovascular Disease | DX: R00.1 Bradycardia, unspecified (principal) | CPT/HCPCS: 93010 ==

== ENCOUNTER → 2025-02-21 10:54 | Outpatient (BNV) | payer MEDICAID, SELFPAY | PROVIDERS: Admitting Provider Student in an Organized Health Care Education/Training Program; Emergency Provider Student in an Organized Health Care Education/Training Program; PCP Internal Medicine Geriatric Medicine; Visit Provider Physician Assistant Surgical | DX: R74.01 Elevation of levels of liver transaminase levels (principal); K85.90 Acute pancreatitis without necrosis or infection, unspecified | CPT/HCPCS: 99222 ==

== ENCOUNTER → 2025-02-21 10:54 | Outpatient (BNV) | payer MEDICAID, SELFPAY | PROVIDERS: Admitting Provider Student in an Organized Health Care Education/Training Program; Emergency Provider Student in an Organized Health Care Education/Training Program; PCP Internal Medicine Geriatric Medicine; Visit Provider Student in an Organized Health Care Education/Training Program | DX: F11.90 Opioid use, unspecified, uncomplicated (principal) | CPT/HCPCS: 99233; 99239 ==

== ENCOUNTER → 2025-02-21 10:54 | Outpatient (BNV) | payer MEDICAID, SELFPAY | PROVIDERS: Admitting Provider Student in an Organized Health Care Education/Training Program; Emergency Provider Student in an Organized Health Care Education/Training Program; PCP Internal Medicine Geriatric Medicine; Visit Provider Internal Medicine | DX: R11.2 Nausea with vomiting, unspecified (principal); K80.50 Calculus of bile duct without cholangitis or cholecystitis without obstruction; R74.01 Elevation of levels of liver transaminase levels; B20 Human immunodeficiency virus [HIV] disease | CPT/HCPCS: 99222 ==

== ENCOUNTER → 2025-02-21 10:54 | Outpatient (BNV) | payer OTHER, SELFPAY | PROVIDERS: Admitting Provider Student in an Organized Health Care Education/Training Program; Emergency Provider Student in an Organized Health Care Education/Training Program; PCP Internal Medicine Geriatric Medicine; Visit Provider Nurse Practitioner Psychiatric/Mental Health | DX: F11.90 Opioid use, unspecified, uncomplicated (principal) | CPT/HCPCS: 99231; 99232 ==

== ENCOUNTER 2025-03-03 08:53 | Emergency (ER) | payer MEDICAID, SELFPAY ==
[2025-03-03 08:57] VITALS: BP 111/47; PULSE 100; RESP 18; TEMP 36.6; O2SAT 97; BMI 15.7
--- OUTSIDE RECORDS SUMMARY | 2025-03-03 09:05 | XMS_ITS | Clinical Summary ---
Author Organization [facility] Address [address] [place] [address] Care Team Providers Care Child Psychiatrist Name Role Phone Unavailable Primary Care Provider [...]
--- NOTE | 2025-03-03 09:18 | HE.PHANOTE ---
Re Methadone Received verification from nursing. Pt gets 70 mg daily from [facility] Tim. Last given a dose on 03/01/25
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
[2025-03-03] MEDS: methADONE HCl 20 MG/2 ML ORAL.CONC 70 MG PO (09:46)
[2025-03-03 09:47] VITALS: BP 111/47; PULSE 100; RESP 18; TEMP 36.6; O2SAT 97
== END 2025-03-03 09:48 | disposition home or self-care (01) ==
PROVIDERS: Emergency Provider Emergency Medicine; PCP Internal Medicine Geriatric Medicine
DX: F11.10 Opioid abuse, uncomplicated (principal); Z79.891 Long term (current) use of opiate analgesic; Z79.899 Other long term (current) drug therapy
CPT/HCPCS: 99282